=== PATIENT | male | born 1935 | race Caucasian/White ===

== ENCOUNTER 2021-08-29 21:13 | Observation (INO) ==
[2021-08-29] MEDS ORDERED: LIDOCAINE 2% JELLY 5 ML TUBE ONE (22:07)
--- NOTE | 2021-08-29 23:22 | Emergency Department Note ---
Impression & Plan Hematuria ED Provider Note INFORMANT: Patient and ED PROVIDER(S): Olman Espinoza MD CHIEF COMPLAINT: Hematuria PLAN: Disposition: Admitted Condition: Good Outpatient prescription management: none Referral: None MEDICAL DECISION MAKING: Patient was evaluated. He had bleeding from the meatus and urinary retention. A Pham catheter was placed. There was some blood-tinged urine that was resulted however the patient was still having moderate clot of blood from the meatus around the Pham catheter. No clear signs of infection on urinalysis. Patient's CBC revealed no leukocytosis but he had dropped his hemoglobin down 1.5 points since last week. The patient had an INR of 1.9. He may have a urethral injury from the catheterizations and because of his anticoagulation he is continuing to bleed. He is not acutely hemorrhaging at this point but I am concerned about his acute drop of his hemoglobin, anticoagulation, and continued bleeding. Patient needs to be monitored. No other clear indication to reverse his anticoagulation at this point as he has slowed the bleeding. Hopefully the catheter will maintain pressure within the urethra and tamponade source. He may need urologic consultation. Consultation was made with the [facility] Hospitalist service. Patient was evaluated in ER admitted for management. Triage Nursing notes reviewed and agree them. Vital Signs: reviewed and remarkable for no significant abnormalities Differential diagnosis: Complication of catheter, urethral trauma, obstruction, dehydration, urinary tract infection, urinary retention, acute kidney injury, as well as other pathologies. Diagnostics interpreted by me: ECG: none Cardiac Monitoring: none Imaging studies: Deferred HPI: The patient is a 85 year old male who presents to the Emergency Room with complaints of hematuria. This started the day and is worsening. The patient also notes the following associated symptoms, difficulty urinating and pelvic pain The patient has tried to straight cath for relieving factors. Current pain is rated as 3/10. Patient had a Pham catheter this week. It was removed yesterday. He was able to void. The patient had been straight cathed twice today. Patient did have a large blood clot this evening on the second straight cath. The family and seem to be a small tear at the urethral meatus. He is anticoagulated. Pt denies LOC, headache, fevers, chills, diaphoresis, visual changes, neck pain, chest pain, breathing difficulties, nausea, vomiting, back pain, weakness, lymphadenopathy, rash, or other complaints. ROS: See above HPI for pertinent positives & negatives. A total of 10 systems reviewed and were otherwise negative. PAST MEDICAL HISTORY:See Below , diabetes PAST SURGICAL HISTORY:See Below, FAMILY HISTORY:See Below SOCIAL HISTORY:See Below, retired HOME MEDICATIONS:See Below ALLERGIES:See Below VITALS:See Below PHYSICAL EXAMINATION: GENERAL: Awake, alert, well-appearing, in no distress HENT: Normocephalic, atraumatic. Oropharynx unremarkable. EYES: Normal conjunctiva. Sclera non-icteric. NECK: Inspection normal. Non-tender. Supple. No nuchal rigidity. FROM. No masses. RESPIRATORY: Clear to auscultation. No wheezes. No rales. Normal respiratory effort. CARDIAC: Normal rate. Normal rhythm. No murmurs. No rubs. Extremities warm and well perfused. Pulses equal. No JVD. GI: Soft, non-distended. No tenderness to palpation. No rebound or guarding. No masses. : Normal male. His a large blood clot noted in the patient's undergarment. There appears to be a small defect at the urethral meatus, inferior aspect. There is blood coming from the urethral meatus and a slow steady trickle. MUSCULOSKELETAL: Atraumatic. Chest examination reveals no tenderness. The back is symmetrical on inspection without obvious abnormality. There is no CVA tenderness to palpation. No joint edema. LOWER EXTREMITIES: Calves are equal size bilaterally and non-tender. Trace edema. Chronic venous discoloration. NEURO: Normal sensorium. No sensory or motor deficits noted. SKIN: No rash or jaundice noted. 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 --- SLEEP APNEA AND NEEDED TRACH #4 SIZE AND NOT SURE OF TUBE INFORMATION PATIENT WILL BRING IN SPARE FOR HIS COLONSCOPY -- CLEANED EVERY DAY CHANGE EVERY MONTH SLEEP UPRIGHT IN CHAIR AND UNPLUG IT AT NIGHT Social History Smoking Status: Never smoker Second Hand Exposure: No; Hx Alcohol Use: No Hx Substance Use: No Preferred Language: Greek Communication Ability: Effective Visual Impairment: Limited Hearing Ability: Normal 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 Required: No Beliefs That Will Affect Care: None marital status: Current Living Situation: Spouse current occupational status: retired Feels Safe at Home: Yes Assistive Devices: Glasses Allergies Allergies Allergy/AdvReac Type Severity Reaction Status Date / Time No Known Allergies Allergy Unknown Verified 07/20/19 13:49 Home Meds Home Medications Medication Instructions Recorded Confirmed allopurinol 100 mg tablet 100 mg PO QAM 07/14/18 08/30/21 atorvastatin 20 mg tablet 20 mg PO HS 07/14/18 08/30/21 glipizide 10 mg tablet, extended 10 mg PO BID 07/14/18 08/30/21 release 24 hr insulin aspar prot-insulin aspart 26 units SQ QAM ml 07/14/18 08/30/21 100 unit/mL (70-30) subcutaneous pen (Novolog Mix 70-30FlexPen U-100) insulin aspar prot-insulin aspart 36 units SQ QPM ml 07/14/18 08/30/21 100 unit/mL (70-30) subcutaneous pen (Novolog Mix 70-30FlexPen U-100) tamsulosin 0.4 mg capsule 0.4 mg PO HS 07/14/18 08/30/21 cholecalciferol (vitamin D3) 50 50 mcg PO DAILY 08/30/21 08/30/21 mcg (2,000 unit) tablet (Vitamin D3) finasteride 5 mg tablet 5 mg PO DAILY 08/30/21 08/30/21 furosemide 40 mg tablet 40 mg PO 4XWK 08/30/21 08/30/21 furosemide 40 mg tablet 60 mg PO MOWEFR 08/30/21 08/30/21 levothyroxine 137 mcg tablet 137 mcg PO DAILY 08/30/21 08/30/21 losartan 50 mg tablet 50 mg PO BID 08/30/21 08/30/21 metoprolol succinate 25 mg 25 mg PO BID 08/30/21 08/30/21 tablet,extended release 24 hr warfarin 2.5 mg tablet 5 mg PO .6DAYS WEEK 08/30/21 08/30/21 warfarin 2.5 mg tablet 7.5 mg PO .QMON 08/30/21 08/30/21 Previous Rx's Medication Instructions Recorded lidocaine HCl 2 % mucosal jelly 1 applic TOPICAL QID PRN #60 ml 08/25/21 Results & Data (ED) Vital Signs Vital Signs - 24 hr 08/29/21 21:15 08/29/21 21:28 08/29/21 23:03 Temperature 36.8 C Temperature Source Temporal Artery Scan Pulse Rate 89 Pulse Rate [Right Finger] 83 59 L Pulse Rhythm [Right Finger] Regular Pulse Strength [Right Finger] Normal Respiratory Rate 16 18 20 Respiratory Effort / Characteristics Non-Labored Spontaneous Non-Labored Respiratory Depth Normal Normal Blood Pressure 173/93 H Blood Pressure [Right Arm] 177/86 H 158/84 H Blood Pressure Mean 119 Blood Pressure Mean [Right Arm] 116 108 Blood Pressure Position Sitting Pulse Oximetry 93 97 96 Oxygen Delivery Method Room Air Room Air Room Air Sepsis Recent Fever Within 48 Hours No Sepsis New/Unexplained Change in Mental Status N/A Sepsis Action Taken by Nursing No Action Required 08/30/21 01:09 Temperature Temperature Source Pulse Rate Pulse Rate [Right Finger] 78 Pulse Rhythm [Right Finger] Pulse Strength [Right Finger] Respiratory Rate 20 Respiratory Effort / Characteristics Respiratory Depth Blood Pressure Blood Pressure [Right Arm] 146/119 H Blood Pressure Mean Blood Pressure Mean [Right Arm] 128 Blood Pressure Position Pulse Oximetry 93 Oxygen Delivery Method Room Air Sepsis Recent Fever Within 48 Hours Sepsis New/Unexplained Change in Mental Status Sepsis Action Taken by Nursing Laboratory Data Result diagrams: 08/29/21 22:32 08/29/21 22:32 Lab Results 08/29/21 08/29/21 08/29/21 Range/Units 22:32 22:32 22:32 WBC 8.41 (4.8-10.8) K/uL RBC 4.16 L (4.7-6.1) M/uL Hgb 13.5 L (14.0-18.0) g/dL Hct 40.3 L (42-52) % MCV 96.9 (80-100) fL MCH 32.5 (25-34) pg MCHC 33.5 (32-36) g/dL RDW Std Deviation 48.0 H (36.4-46.3) fL RDW Coeff of Jenae 13.5 (11.5-14.5) % Plt Count 210 (130-400) K/uL MPV 10.4 (7.4-10.4) fL Immature Gran % (Auto) 0.4 % Neut % (Auto) 75.3 % Lymph % (Auto) 13.9 % [place] % (Auto) 8.2 % Eos % (Auto) 2.1 % Baso % (Auto) 0.1 % Neut # (Auto) 6.33 (1.4-6.5) K/uL Lymph # (Auto) 1.17 L (1.2-3.4) K/uL [place] # (Auto) 0.69 H (0.11-0.59) K/uL Eos # (Auto) 0.18 (0-0.5) K/uL Baso # (Auto) 0.01 (0-0.2) K/uL Immature Gran # (Auto) 0.03 H (0.00-0.02) K/uL PT 19.5 H (9.0-12.0) Seconds INR 1.9 H (0.9-1.1) Sodium 138 (136-145) mmol/L Potassium 4.1 (3.5-5.1) mmol/L Chloride 107 (98-107) mmol/L Carbon Dioxide 24 (21-32) mmol/L Anion Gap 7 (3-11) BUN 36 H (6-23) mg/dl Creatinine 1.67 H (0.6-1.4) mg/dl Est Cr Clr Drug Dosing 44.9 ml/min Est GFR ( Amer) 42.6 ml/min Est GFR (Non-Af Amer) 36.8 ml/min BUN/Creatinine Ratio 21.6 H (10-20) Glucose 159 H (70-99(Fasting)) mg/dl Calcium 8.3 L (8.5-10.1) mg/dl Total Bilirubin 0.5 (0.2-1.0) mg/dl AST 22 (13-39) U/L ALT 22 (7-52) U/L Alkaline Phosphatase 115 H (34-104) U/L Total Protein 7.0 (6.0-8.3) gm/dl Albumin 3.1 L (3.4-5.0) gm/dl Globulin 3.9 (2.5-4.0) gm/dl Albumin/Globulin Ratio 0.8 L (0.9-2) Urine Color Urine Appearance (Clear) Urine pH (4.5-7.5) Ur Specific [place] (1.000-1.030) Urine Protein (Negative) Urine Glucose (UA) (Negative) Urine Ketones (Negative) Urine Blood (Negative) Urine Nitrite (Negative) Urine Bilirubin (Negative) Urine Urobilinogen (Negative) Ur Leukocyte Esterase (Negative) Urine WBC (Auto) (0-5) /hpf Urine RBC (Auto) (0-4) /hpf U Hyaline Cast (Auto) (0-5) /lpf U Epithel Cells (Auto) (0-5) /lpf Urine Bacteria (Auto) (Negative) SARS-CoV-2, RNA, NAAT (NEGATIVE) 08/29/21 08/30/21 Range/Units 22:32 00:01 WBC (4.8-10.8) K/uL RBC (4.7-6.1) M/uL Hgb (14.0-18.0) g/dL Hct (42-52) % MCV (80-100) fL MCH (25-34) pg MCHC (32-36) g/dL RDW Std Deviation (36.4-46.3) fL RDW Coeff of Jenae (11.5-14.5) % Plt Count (130-400) K/uL MPV (7.4-10.4) fL Immature Gran % (Auto) % Neut % (Auto) % Lymph % (Auto) % [place] % (Auto) % Eos % (Auto) % Baso % (Auto) % Neut # (Auto) (1.4-6.5) K/uL Lymph # (Auto) (1.2-3.4) K/uL [place] # (Auto) (0.11-0.59) K/uL Eos # (Auto) (0-0.5) K/uL Baso # (Auto) (0-0.2) K/uL Immature Gran # (Auto) (0.00-0.02) K/uL PT (9.0-12.0) Seconds INR (0.9-1.1) Sodium (136-145) mmol/L Potassium (3.5-5.1) mmol/L Chloride (98-107) mmol/L Carbon Dioxide (21-32) mmol/L Anion Gap (3-11) BUN (6-23) mg/dl Creatinine (0.6-1.4) mg/dl Est Cr Clr Drug Dosing ml/min Est GFR ( Amer) ml/min Est GFR (Non-Af Amer) ml/min BUN/Creatinine Ratio (10-20) Glucose (70-99(Fasting)) mg/dl Calcium (8.5-10.1) mg/dl Total Bilirubin (0.2-1.0) mg/dl AST (13-39) U/L ALT (7-52) U/L Alkaline Phosphatase (34-104) U/L Total Protein (6.0-8.3) gm/dl Albumin (3.4-5.0) gm/dl Globulin (2.5-4.0) gm/dl Albumin/Globulin Ratio (0.9-2) Urine Color Red Urine Appearance Turbid A (Clear) Urine pH 5.5 (4.5-7.5) Ur Specific [place] 1.011 (1.000-1.030) Urine Protein 3+ H (Negative) Urine Glucose (UA) 1+ H (Negative) Urine Ketones Negative (Negative) Urine Blood 3+ H (Negative) Urine Nitrite Negative (Negative) Urine Bilirubin Negative (Negative) Urine Urobilinogen Negative (Negative) Ur Leukocyte Esterase Negative (Negative) Urine WBC (Auto) 5-10 H (0-5) /hpf Urine RBC (Auto) >30 H (0-4) /hpf U Hyaline Cast (Auto) 1-5 (0-5) /lpf U Epithel Cells (Auto) 5-10 H (0-5) /lpf Urine Bacteria (Auto) Negative (Negative) SARS-CoV-2, RNA, NAAT NEGATIVE (NEGATIVE) Administered Medications Discontinued Medications Lidocaine HCl (Lidocaine 2% Jelly 5 Ml Tube) Confirm Administered Dose 5 ml .ROUTE .Affirm-MED ONE Stop: 08/29/21 22:08 Last Admin: 08/29/21 22:40 Dose: 5 ml Documented by: [id number] Discharge Plan Visit Data Chief Complaint: Urinary Symptoms Stated Complaint: BLOOD CLOT, PELVIC AREA ED Provider: Olman Espinoza Discharge Problem: Hematuria Forms Stand Alone Forms: My [facility] Prescriptions Prescriptions: No Action allopurinol 100 mg tablet 100 mg PO QAM RF: 0 atorvastatin 20 mg tablet 20 mg PO HS RF: 0 tamsulosin 0.4 mg capsule 0.4 mg PO HS RF: 0 Novolog Mix 70-30FlexPen U-100 100 unit/mL (70-30) insulin pen 26 units SQ QAM RF: 0 Novolog Mix 70-30FlexPen U-100 100 unit/mL (70-30) insulin pen 36 units SQ QPM RF: 0 glipizide 10 mg tablet extended release 24hr 10 mg PO BID RF: 0 lidocaine HCl 2 % jelly 1 applic topical QID PRN (Reason: pain) Qty: 60 RF: 0 losartan 50 mg tablet 50 mg PO BID RF: 0 furosemide 40 mg tablet 40 mg PO 4XWK RF: 0 furosemide 40 mg tablet 60 mg PO MOWEFR RF: 0 levothyroxine 137 mcg tablet 137 mcg PO DAILY RF: 0 warfarin 2.5 mg tablet 7.5 mg PO .QMON RF: 0 warfarin 2.5 mg tablet 5 mg PO .6DAYS WEEK RF: 0 metoprolol succinate 25 mg tablet extended release 24 hr 25 mg PO BID RF: 0 finasteride 5 mg tablet 5 mg PO DAILY RF: 0 cholecalciferol (vitamin D3) [Vitamin D3] 50 mcg (2,000 unit) Tablet 50 mcg PO DAILY RF: 0 Referrals Referrals: Tu Crump MD [Primary Care Provider] -
[2021-08-29 23:28] LABS: Basophils # (auto) 0.01 K/uL (0-0.2); Basophils % (auto) 0.1 %; Eosinophils # (auto) 0.18 K/uL (0-0.5); Eosinophils % (auto) 2.1 %; Hematocrit (blood only) 40.3 % (42-52); Hemoglobin 13.5 g/dL (14.0-18.0); Immature Granulocytes # (auto) 0.03 K/uL (0.00-0.02); Immature Granulocytes % (auto) 0.4 %; Lymphocytes # (auto) 1.17 K/uL (1.2-3.4); Lymphocytes % (auto) 13.9 %; Mean Corpuscular Hemoglobin 32.5 pg (25-34); Mean Corpuscular Hgb Conc 33.5 g/dL (32-36); Mean Corpuscular Volume 96.9 fL (80-100); Mean Platelet Volume 10.4 fL (7.4-10.4); Monocytes # (auto) 0.69 K/uL (0.11-0.59); Monocytes % (auto) 8.2 %; Neutrophils # (auto) 6.33 K/uL (1.4-6.5); Neutrophils % (auto) 75.3 %; Platelet Count 210 K/uL (130-400); RDW Coefficient of Variation 13.5 % (11.5-14.5); Red Blood Count 4.16 M/uL (4.7-6.1); White Blood Count 8.41 K/uL (4.8-10.8)
[2021-08-29 23:34] LABS: Bacteria Urine Automated Negative (Negative); Bilirubin Urine Negative (Negative); Blood Urine 3+ (Negative); Glucose Urine UA 1+ (Negative); Ketones Urine Negative (Negative); Leukocyte Esterase Urine Negative (Negative); Nitrite Urine Negative (Negative); Protein Urine 3+ (Negative); RBC Urine Automated >30 /hpf (0-4); Specific Gravity Urine 1.011 (1.000-1.030); Urobilinogen Urine Negative (Negative); pH Urine 5.5 (4.5-7.5)
[2021-08-29 23:36] LABS: INR 1.9 (0.9-1.1); Prothrombin Time 19.5 Seconds (9.0-12.0)
[2021-08-29 23:44] LABS: Appearance Urine Turbid (Clear); Color Urine Red
[2021-08-30 00:04] LABS: Albumin Globulin Ratio 0.8 (0.9-2); Albumin Level 3.1 gm/dl (3.4-5.0); BUN Creatinine Ratio 21.6 (10-20); Bilirubin,Total 0.5 mg/dl (0.2-1.0); Calcium 8.3 mg/dl (8.5-10.1); Creatinine Clr Calc Pharmacy 44.9 ml/min; Est GFR (African American) 42.6 ml/min; Est GFR (Non-African American) 36.8 ml/min; Globulin 3.9 gm/dl (2.5-4.0); Potassium 4.1 mmol/L (3.5-5.1)
[2021-08-30] MEDS ORDERED: ACETAMINOPHEN 325 MG TAB PO PRN (03:06)
[2021-08-30] MEDS ORDERED: POLYETHYLENE (MIRALAX) 17 GM PACK PO PRN (03:06)
[2021-08-30] MEDS ORDERED: LIDOCAINE 2% JELLY 5 ML TUBE EXT PRN (03:06)
--- NOTE | 2021-08-30 03:54 | History and Physical Report ---
DATE OF ADMISSION: 08/30/2021. CHIEF COMPLAINT: Hematuria. HISTORY OF PRESENT ILLNESS: This is an 85-year-old male with past medical history significant for diabetes, diabetic peripheral neuropathy, chronic kidney disease stage III, hyperlipidemia, diabetic retinopathy, hypothyroidism, congenital atresia and stenosis of aorta, nonrheumatic aortic valve stenosis, hypertension, status post TAVR, persistent atrial fibrillation, morbid obesity, BPH, history of microhematuria, CHRISTI intolerance, history of subacute bacterial endocarditis prophylaxis candidate, tracheostomy status, but the patient is not using it, history of colonic polyps, history of cerebellar stroke, history of kidney stones. The patient lives at home with his , presents with hematuria. The patient says he was placed on Pham catheter for 4 days because of urinary retention and the Pham catheter was taken out on last Saturday and since then again, he was not able to pee and yesterday he was straight cathed twice, first it was done by his , second was done by his granddaughter, who is a nurse. When they did, he was passing a lot of clots and bleeding, that is the reason he came to the ER. In the ER, he was placed on Pham. He had some blood tinge in the catheter, but there is some bleeding around the catheter, probably urethral meatus bleeding. His hemoglobin is stable at 13.5. He is on Coumadin, INR is 1.9. Creatinine is 1.6 which is around baseline.Will be admitted for observation. Currently denies any belly pain. No nausea, no vomiting, no diarrhea or constipation. No chest pain, no shortness of breath, no cough, no headache, no blurred visions, no earache, no runny nose, no sore throat. Appetite is okay, swallows okay. He says because of back pain, he generally sleeps in the chair. ALLERGIES: CHRISTI INHIBITORS, SIMVASTATIN. PAST MEDICAL HISTORY: As mentioned above. PAST SURGICAL HISTORY: Left knee arthroplasty, colonoscopy, colonoscopy with biopsy, status post tracheostomy, radical orchiectomy, appendectomy, bilateral cataract surgeries, cholecystectomy, TAVR, suture repair of entropion, total hip arthroplasty. MEDICATIONS: The patient is on allopurinol 100 mg p.o. a.m., atorvastatin 20 mg p.o. at bedtime, vitamin D 50 mcg p.o. daily, finasteride 5 mg p.o. daily, Lasix 40 mg p.o. 4 times a week and 60 mg 3 times a week, glipizide 10 mg p.o. b.i.d., insulin 70/30 to take2 6 units in the a.m. and 36 units in the p.m., levothyroxine 137 mcg p.o. daily, lidocaine patch topical q.i.d. p.r.n., losartan 50 mg p.o. b.i.d., metoprolol succinate 25 mg p.o. b.i.d., Flomax 0.4 mg p.o. at bedtime, Coumadin 7.5 mg on Mondays and 5 mg 6 times a week. FAMILY HISTORY: Significant for sister has cancer, brother has diabetes. SOCIAL HISTORY: , no smoking, no alcohol, no drug use. REVIEW OF SYSTEMS: As per HPI. Rest of review of systems is negative. PHYSICAL EXAMINATION: GENERAL: The patient is morbidly obese, not in acute distress. VITAL SIGNS: Temperature 36.8, pulse 78, respiratory rate 20, blood pressure 146/119, oxygen 93% on room air. HEENT: Pupils equal, round and reactive to light. Oral mucosa moist. NECK: No JVD, no neck masses. CARDIOVASCULAR: S1 and S2 heard. Regular rate and rhythm. No murmur, no gallop. RESPIRATORY SYSTEM: Normal AP diameter. No accessory muscle use. No wheezing, no crackles. ABDOMEN: Soft. Bowel sounds are present, nontender, no distention. CENTRAL NERVOUS SYSTEM: Cranial nerves II-XII grossly intact, nonfocal. EXTREMITIES: Mild edema, no erythema seen. LABORATORY DATA: WBC 8.4, hemoglobin 13.5, hematocrit 40.3, platelets 210. PT 19.5, INR 1.9. Sodium 138, potassium 4.1, chloride 107, bicarb 24, BUN 36, creatinine 1.67, serum glucose 159, calcium 8.3, total bilirubin 0.5, AST 22, ALT 22, alkaline phosphatase 115. Urinalysis, +3 protein, +1 glucose, +3 blood. SARS-CoV-2 rapid test negative. ASSESSMENT AND PLAN: This is an 85-year-old male who presents with hematuria and urinary retention. 1. Hematuria and urinary retention: The patient has had a Pham catheter for 4 days and it was taken out on last Saturday. Then had to straight catheterize twice and had hematuria. On Coumadin, INR is 1.9, status post Pham catheter in the ER. Some blood-tinged urine and some bleeding around the catheter. Will observe in the hospital. Consult urology in the a.m. Keep n.p.o. until seen by urology. 2. History of type 2 diabetes: Currently n.p.o. Holding his glipizide and holding his insulin 70/30. Placed on insulin sliding scale. Follow the blood sugars. 3. History of hypothyroidism: Continue Synthroid. 4. History of hypertension: Continue losartan and metoprolol. Will monitor his blood pressure. 5. History of chronic diastolic congestive heart failure: Continue his home Lasix and metoprolol. 6. Benign prostatic hypertrophy: On Flomax and Proscar. 7. History of atrial fibrillation: Rate controlled with metoprolol. Holding Coumadin. Follow the INR. Status post TAVR. 8. Hyperlipidemia: On statin. 9. Deep venous thrombosis prophylaxis: Sequential compression devices for now. DISPOSITION: Observation in medical floor. PT/OT prior to discharge. Social service to help with discharge planning. Level 1 full code. Job ID: [id number] [facility]
[2021-08-30] MEDS ORDERED: Nursing to Pharmacy Communication SCH ×2 (05:15→15:30)
[2021-08-30] MEDS: LEVOTHYROXINE SODIUM 137 MCG TABLET PO SCH (06:33)
[2021-08-30] MEDS: INSULIN ASPART PER UNIT SC SCH ×4 (06:33→21:07)
[2021-08-30] MEDS ORDERED: INSULIN ASPART PER UNIT SC SCH (07:30)
[2021-08-30 07:52] LABS: Basophils # (auto) 0.02 K/uL (0-0.2); Basophils % (auto) 0.3 %; Eosinophils # (auto) 0.29 K/uL (0-0.5); Eosinophils % (auto) 3.8 %; Hematocrit (blood only) 38.2 % (42-52); Hemoglobin 12.9 g/dL (14.0-18.0); Immature Granulocytes # (auto) 0.02 K/uL (0.00-0.02); Immature Granulocytes % (auto) 0.3 %; Lymphocytes # (auto) 1.46 K/uL (1.2-3.4); Lymphocytes % (auto) 18.9 %; Mean Corpuscular Hemoglobin 33.1 pg (25-34); Mean Corpuscular Hgb Conc 33.8 g/dL (32-36); Mean Corpuscular Volume 97.9 fL (80-100); Mean Platelet Volume 10.3 fL (7.4-10.4); Monocytes # (auto) 0.85 K/uL (0.11-0.59); Neutrophils # (auto) 5.07 K/uL (1.4-6.5); Neutrophils % (auto) 65.7 %; Platelet Count 202 K/uL (130-400); RDW Coefficient of Variation 13.3 % (11.5-14.5); RDW Standard Deviation 47.8 fL (36.4-46.3); White Blood Count 7.71 K/uL (4.8-10.8)
[2021-08-30 08:04] LABS: INR 1.9 (0.9-1.1); Prothrombin Time 19.4 Seconds (9.0-12.0)
[2021-08-30 08:11] LABS: BUN Creatinine Ratio 20.6 (10-20); Calcium 8.1 mg/dl (8.5-10.1); Creatinine Clr Calc Pharmacy 46.5 ml/min; Est GFR (African American) 44.9 ml/min; Est GFR (Non-African American) 38.7 ml/min; Magnesium 1.9 mg/dl (1.7-2.4); Potassium 3.6 mmol/L (3.5-5.1)
[2021-08-30 08:37] LABS: Estimated Average Glucose 169 mg/dl; Hemoglobin A1C 7.5 % (4.5-5.6)
[2021-08-30] MEDS: LOSARTAN POTASSIUM 50 MG TAB PO SCH ×2 (08:38→21:03)
[2021-08-30] MEDS: allopurinoL 100 MG TAB PO SCH (08:38)
[2021-08-30] MEDS: FUROSEMIDE 20 MG TAB PO SCH (08:38)
[2021-08-30] MEDS: FINASTERIDE 5 MG TAB PO SCH (08:38)
[2021-08-30] MEDS: CHOLECALCIFEROL 1,000 UNITS 25 MCG TAB PO SCH (08:38)
[2021-08-30] MEDS: METOPROLOL SUCC 25MG EXT REL TAB PO SCH ×2 (08:38→21:02)
--- NOTE | 2021-08-30 12:13 | Urology Consultation ---
Date of Consultation August 30, 2021 Assessment & Plan (1) Acute urinary retention: (2) Hematuria: 85-year-old male with multiple medical issues on chronic anticoagulation admitted with acute urinary retention and gross hematuria. -Gross hematuria likely due to the recent multiple catheterizations in the setting of chronic anticoagulation. -He is afebrile, hemodynamically stable. -Labs reviewed- No leukocytosis, hemoglobin 12.9, creatinine 1.60 -Urinalysis not suggestive of infection. -No acute intervention warranted at this time. -Urine appears to be clearing some, Pham catheter currently draining light pink urine without clot -Continue to monitor. -Maintain Pham catheter, ok to gently hand irrigate as needed for clots, retention, suprapubic pain. -Will plan to make NPO at midnight and reassess in AM. -Continue supportive care, flomax, and finasteride. -Anticoagulation on hold per primary team. -Urology will follow. History of Present Illness Reason for Consultation: Urinary retention, hematuria Attending Physician: Pepper Helton MD History of Present Illness 85-year-old male with a past medical history significant for diabetes, diabetic peripheral neuropathy, chronic kidney disease stage III, hyperlipidemia, diabetic retinopathy, hypothyroidism, congenital atresia and stenosis of aorta, nonrheumatic aortic valve stenosis, hypertension, status post TAVR, persistent atrial fibrillation, morbid obesity, BPH, history of microhematuria, CHRISTI intolerance, history of subacute bacterial endocarditis prophylaxis candidate, tracheostomy status, but the patient is not using it, history of colonic polyps, history of cerebellar stroke, history of kidney stones who presented to the ED with urinary retention and hematuria. Patient follows with Dr. Rascon with [facility] urology. Patient had a cystoscopy at the end of July. About a week later he developed urinary retention and had a Pham catheter placed here in the emergency room. He had the catheter for approximately 1 week and had this removed on Saturday at his primary urologist office. Since then he has had difficulty with urination and was straight cathed x2 at home by /daughter. After being straight catheterized, he noted passage of clots and bleeding and therefore presented to the ED for evaluation. On arrival in the ED, a Pham catheter was placed. The catheter was draining with hematuria and bleeding was also noted around the meatus. He was admitted for further observation. Patient examined at bedside this morning. Awake, resting in bed on arrival. No acute distress. Patient denies any significant pain at present. Pham catheter is intact and draining light pink urine without clot. No fevers or chills. Denies nausea or vomiting. Patient states he follows with Dr. Rascon with [facility] urology. He was recently seen in the office and started on finasteride as he was told he had an enlarged prostate. No additional complaints or concerns at time of exam. Allergies Allergy/AdvReac Type Severity Reaction Status Date / Time CHRISTI Inhibitors AdvReac Mild Cough Verified 08/30/21 01:25 simvastatin AdvReac Muscle Pain Verified 08/30/21 01:25 Home Medications Medication Instructions Recorded Confirmed Type allopurinol 100 mg tablet 100 mg PO QAM 07/14/18 08/30/21 History atorvastatin 20 mg tablet 20 mg PO HS 07/14/18 08/30/21 History glipizide 10 mg tablet, extended 10 mg PO BID 07/14/18 08/30/21 History release 24 hr insulin aspar prot-insulin aspart 26 units SQ QAM ml 07/14/18 08/30/21 History 100 unit/mL (70-30) subcutaneous pen (Novolog Mix 70-30FlexPen U-100) insulin aspar prot-insulin aspart 36 units SQ QPM ml 07/14/18 08/30/21 History 100 unit/mL (70-30) subcutaneous pen (Novolog Mix 70-30FlexPen U-100) tamsulosin 0.4 mg capsule 0.4 mg PO HS 07/14/18 08/30/21 History lidocaine HCl 2 % mucosal jelly 1 applic TOPICAL QID PRN #60 ml 08/25/21 08/30/21 Rx cholecalciferol (vitamin D3) 50 50 mcg PO DAILY 08/30/21 08/30/21 History mcg (2,000 unit) tablet (Vitamin D3) finasteride 5 mg tablet 5 mg PO DAILY 08/30/21 08/30/21 History furosemide 40 mg tablet 40 mg PO 4XWK 08/30/21 08/30/21 History furosemide 40 mg tablet 60 mg PO MOWEFR 08/30/21 08/30/21 History levothyroxine 137 mcg tablet 137 mcg PO DAILY 08/30/21 08/30/21 History losartan 50 mg tablet 50 mg PO BID 08/30/21 08/30/21 History metoprolol succinate 25 mg 25 mg PO BID 08/30/21 08/30/21 History tablet,extended release 24 hr warfarin 2.5 mg tablet 5 mg PO .6DAYS WEEK 08/30/21 08/30/21 History warfarin 2.5 mg tablet 7.5 mg PO .QMON 08/30/21 08/30/21 History Patient History Medical History (Updated 08/29/21 @ 23:22 by Olman Espinoza MD) Chronic kidney disease, stage III (moderate) GERD (gastroesophageal reflux disease) Gout H/O nonmelanoma skin cancer Hyperlipidemia Hypertension Hypothyroidism (acquired) Kidney stones 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 Type 2 diabetes mellitus without complications Surgical History Hx of colonoscopy Hx of tonsillectomy S/P aortic valve replacement DUE TO STENOSIS S/P appendectomy S/P cholecystectomy S/P hip replacement LEFT S/P knee replacement LEFT 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 --- SLEEP APNEA AND NEEDED TRACH #4 SIZE AND NOT SURE OF TUBE INFORMATION PATIENT WILL BRING IN SPARE FOR HIS COLONSCOPY -- CLEANED EVERY DAY CHANGE EVERY MONTH SLEEP UPRIGHT IN CHAIR AND UNPLUG IT AT NIGHT Social History Smoking Status: Former smoker Smoking End Date: 60 yrs ago; Second Hand Exposure: No; Hx Alcohol Use: No Hx Substance Use: No Preferred Language: Citizen Of [place] Communication Ability: Effective Visual Impairment: Limited Hearing Ability: Normal 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: No Beliefs That Will Affect Care: None marital status: Current Living Situation: Spouse current occupational status: retired Other Information That Helps Us Care for You: No Feels Safe at Home: Yes Safety Concerns: Feels Safe At This Time Assistive Devices: Cane Review of Systems Review of Systems: All systems reviewed & are unremarkable except as noted in HPI & below Physical Exam Constitutional: well developed and well nourished; no acute distress and not ill appearing Neck: normal visual inspection Respiratory: normal respiratory effort and able to speak in complete sentences; no labored breathing and no audible wheezes Gastrointestinal (Abdomen): Inspection/Auscultation: abdomen normal to inspection; abdomen not distended Percussion/Palpation: abdomen soft; abdomen nontender and no guarding Musculoskeletal: Head/Neck/Chest: normocephalic Skin: No visible rashes or lesions to exposed skin areas Neurologic: moves all extremities and awake Psychiatric: Orientation: alert, oriented x 3 and cooperative Genitourinary: Pham catheter intact, draining light pink urine without clot Results & Data ([facility]) Vital Signs (Past 12 Hours) Vital Signs Temp Pulse Resp BP BP Pulse Ox 08/30/21 07:46 36.8 C 62 20 143/77 H 94 08/30/21 02:50 36.4 C L 72 16 176/83 H 98 08/30/21 02:20 70 20 156/93 H 96 08/30/21 01:09 78 20 146/119 H 93 PG Care Time/CCT Total # of Minutes Spent Total Time Spent with Patient: Total time spent is greater than 50% in coordination of care (as documented) at patient's floor/unit and/or counseling patient: Coding Level of Care Code 93654 Initial Inpt Care Lvl 2 Diagnoses Acute urinary retention R33.8 Hematuria R31.9
--- NOTE | 2021-08-30 15:22 | Hospitalist Progress Note ---
Date of Service August 30, 2021 Assessment & Plan (1) Acute urinary retention: Plan: 85-year-old male with past medical history significant for diabetes, diabetic peripheral neuropathy, chronic kidney disease stage III, hyperlipidemia, diabetic retinopathy, hypothyroidism, congenital atresia and stenosis of aorta, nonrheumatic aortic valve stenosis, hypertension, status post TAVR, persistent atrial fibrillation, morbid obesity, BPH, history of microhematuria, CHRISTI int olerance, history of subacute bacterial endocarditis prophylaxis candidate, tracheostomy status, but the patient is not using it, history of colonic polyps, history of cerebellar stroke, history of kidney stones presented 08/30 with what appears to be traumatic hematuria after failed straight cath x2 at home. He is being managed for the followin. Hematuria and urinary retention: The patient has had a Pham catheter for 4 days and it was taken out on last Saturday [employer]. Then had to straight catheterize twice and had hematuria. On Coumadin, INR is 1.9, status post Pham catheter in the ER. Per patient, hematuria is getting better. Urology evaluated, no intervention today, will reassess tomorrow. N.p.o. midnight. Can resume diet now. Patient on Coumadin for A. fib, resume when cleared per urology. Patient will need follow-up with Coumadin clinic as an outpatient upon discharge. 2. History of type 2 diabetes: Holding his glipizide and holding his insulin 70/30. Placed on insulin sliding scale. Follow the blood sugars. 3. History of hypothyroidism: Continue Synthroid. 4. History of hypertension: Continue losartan and metoprolol. Will monitor his blood pressure. 5. History of chronic diastolic congestive heart failure: Continue his home Lasix and metoprolol. 6. Benign prostatic hypertrophy: On Flomax and Proscar. 7. History of atrial fibrillation: Rate controlled with metoprolol. Holding Coumadin. Follow the INR. Status post TAVR. 8. Hyperlipidemia: On statin. 9. Deep venous thrombosis prophylaxis: Sequential compression devices for now. #. Disposition: Likely in the next 1 to 2 days, CM to assist with DC planning. Admission and Anticipated Discharge Date Admission Date: August 30, 2021 Subjective 85-year-old gentleman was seen and examined at bedside as a follow-up of hematuria and urinary retention. Patient was lying in bed, on room air, NAD, no new acute events overnight. Per patient, his hematuria is clearing up. Patient n.p.o. at bedside exam for possible urologic intervention, per urology no intervention today, diet resumed, n.p.o. from midnight for possible urology intervention tomorrow/reassessment. Patient denies any headache/dizziness/chest pain/palpitations/belly pain/acute changes in bowel habits. Physical Exam Physical Exam: GENERAL: Alert and oriented x3. NAD, on RA. Morbidly obese. HEENT: No pallor, no icterus. Pupils equal, round and reactive to light. Oral mucosa moist. NECK: No JVD, no neck masses. HEART: S1 and S2 heard. Regular rate and rhythm. No murmur, no gallop. RESPIRATORY SYSTEM: Normal AP diameter. No accessory muscle use. No wheezing, no crackles. ABDOMEN: Soft, bowel sounds present, nontender, no distention. CENTRAL NERVOUS SYSTEM: No facial droop. Speech is clear. Obeys simple commands. Moves extremities. EXTREMITIES: No edema, no erythema seen. BLE chronic skin changes. UC w/ gross hematuria in bag. Results & Data Results & Data ([facility]) Vital Signs (Past 12 Hours) Vital Signs Temp Pulse Resp BP Pulse Ox 08/30/21 07:46 36.8 C 62 20 143/77 H 94
[2021-08-30] MEDS: ATORVASTATIN 20 MG TAB PO SCH (21:02)
[2021-08-30] MEDS: TAMSULOSIN HCL 0.4 MG CAP PO SCH (21:02)
[2021-08-31] MEDS: INSULIN ASPART PER UNIT SC SCH ×5 (00:22→22:08)
[2021-08-31] MEDS: LEVOTHYROXINE SODIUM 137 MCG TABLET PO SCH (06:13)
[2021-08-31] MEDS ORDERED: FUROSEMIDE 40 MG TAB PO SCH (09:00)
[2021-08-31 09:07] LABS: Hematocrit (blood only) 38.1 % (42-52); Hemoglobin 12.7 g/dL (14.0-18.0)
[2021-08-31 09:28] LABS: BUN Creatinine Ratio 20.8 (10-20); Calcium 8.2 mg/dl (8.5-10.1); Est GFR (African American) 40.8 ml/min; Est GFR (Non-African American) 35.2 ml/min; Magnesium 1.9 mg/dl (1.7-2.4); Potassium 3.6 mmol/L (3.5-5.1)
[2021-08-31] MEDS: LOSARTAN POTASSIUM 50 MG TAB PO SCH ×2 (10:59→20:14)
[2021-08-31] MEDS: FINASTERIDE 5 MG TAB PO SCH (10:59)
[2021-08-31] MEDS: CHOLECALCIFEROL 1,000 UNITS 25 MCG TAB PO SCH (11:00)
[2021-08-31] MEDS: METOPROLOL SUCC 25MG EXT REL TAB PO SCH ×2 (11:00→20:14)
[2021-08-31] MEDS: allopurinoL 100 MG TAB PO SCH (11:00)
--- NOTE | 2021-08-31 12:24 | Urology Progress Note ---
Date of Service August 31, 2021 Assessment & Plan (1) Acute urinary retention: (2) Hematuria: Plan: 85-year-old male with multiple medical issues on chronic anticoagulation admitted with acute urinary retention and gross hematuria. -Plan of care reviewed with Dr. Bloom. -Urine appears to be clearing. -Pham catheter currently draining pink tinged urine without clot -Will continue to monitor. -No acute intervention warranted at this time. -He is afebrile, hemodynamically stable. -Labs reviewed- No leukocytosis, hemoglobin 12.7, creatinine 1.73 -Urinalysis not suggestive of infection. -Maintain Pham catheter, ok to gently hand irrigate as needed for clots, retention, suprapubic pain. -Continue supportive care, flomax, and finasteride. -Given his urine continues to clear appropriately, he can likely resume his anticoagulation in the next 24-48 hours from a standpoint. -Small tear noted at urethral meatus on exam, can apply Neosporin ointment to affected area. -Urology will follow. Admission and Anticipated Discharge Date Admission Date: August 30, 2021 Subjective Pt examined at bedside this AM. Awake, resting in bed on arrival. No acute distress. Pham catheter intact, draining pink tinged urine without clot. Denies any pain or discomfort. No fevers or chills. Denies nausea/vomiting. Small tear at the urethral meatus with small amount of dried blood noted. Review of Systems Constitutional: as per Subjective / HPI Gastrointestinal: as per Subjective / HPI Genitourinary: + as per Subjective / HPI Physical Exam Constitutional: well developed and well nourished; no acute distress and not ill appearing Neck: normal visual inspection Respiratory: normal respiratory effort and able to speak in complete sentences; no labored breathing and no audible wheezes Gastrointestinal (Abdomen): Inspection/Auscultation: abdomen normal to inspection; abdomen not distended Percussion/Palpation: abdomen soft; abdomen nontender and no guarding Musculoskeletal: Head/Neck/Chest: normocephalic Neurologic: moves all extremities and awake Psychiatric: Orientation: alert, oriented x 3 and cooperative Genitourinary: Pham catheter intact, draining pink tinged urine. Small tear at urethral meatus. Results & Data ([facility]) Vital Signs (Past 12 Hours) Vital Signs Temp Pulse Resp BP Pulse Ox 08/31/21 07:56 36.6 C 82 20 162/74 H 96 PG Care Time/CCT Total # of Minutes Spent Total Time Spent with Patient: Total time spent is greater than 50% in coordination of care (as documented) at patient's floor/unit and/or counseling patient: Coding Level of Care Code 45755 Subseq Hosp Care Lvl 2 Diagnoses Acute urinary retention R33.8 Hematuria R31.9
[2021-08-31] MEDS ORDERED: Nursing to Pharmacy Communication SCH (13:45)
[2021-08-31] MEDS ORDERED: GLUCOSE 40% GEL 15 GM TUBE PO PRN (14:45)
[2021-08-31] MEDS ORDERED: GLUCAGON FOR INJ 1 MG VIAL IM PRN (14:45)
[2021-08-31] MEDS ORDERED: CARBOHYDRATES FOR HYPOGLYCEMIA PO PRN (14:45)
[2021-08-31] MEDS ORDERED: DEXTROSE 50% 50 ML SYRINGE IV PRN (14:45)
[2021-08-31] MEDS ORDERED: GLUCOSE 10 TABS/TUBE PO PRN (14:45)
[2021-08-31] MEDS: NEOMYCIN/POLYMYX/BACITR OINT 15 GM TUBE EXT SCH (17:15)
--- NOTE | 2021-08-31 18:51 | Hospitalist Progress Note ---
Date of Service August 31, 2021 Assessment & Plan (1) Acute urinary retention: Plan: 85-year-old male with past medical history significant for diabetes, diabetic peripheral neuropathy, chronic kidney disease stage III, hyperlipidemia, diabetic retinopathy, hypothyroidism, congenital atresia and stenosis of aorta, nonrheumatic aortic valve stenosis, hypertension, status post TAVR, persistent atrial fibrillation, morbid obesity, BPH, history of microhematuria, CHRISTI int olerance, history of subacute bacterial endocarditis prophylaxis candidate, tracheostomy status, but the patient is not using it, history of colonic polyps, history of cerebellar stroke, history of kidney stones presented 08/30 with what appears to be traumatic hematuria after failed straight cath x2 at home. He is being managed for the followin. Hematuria and urinary retention: The patient has had a Pham catheter for 4 days and it was taken out on last Saturday [employer] ASSOCI[employer]. Then had to straight catheterize twice and had hematuria before coming. Status post Pham catheter in the ER.Coumadin on hold. Hematuria is getting better. Urology evaluated, no intervention. Patient on Coumadin for A. fib, resume when cleared per urology - in next 24-48 hrs. Patient will need follow-up with Coumadin clinic as an outpatient upon discharge. 2. History of type 2 diabetes: Holding his glipizide and holding his insulin 70/30. Placed on insulin sliding scale. Follow the blood sugars. 3. History of hypothyroidism: Continue Synthroid. 4. History of hypertension: Continue losartan and metoprolol. Will monitor his blood pressure. 5. History of chronic diastolic congestive heart failure: Continue his home Lasix and metoprolol. 6. Benign prostatic hypertrophy: On Flomax and Proscar. 7. History of atrial fibrillation: Rate controlled with metoprolol. Holding Coumadin. Follow the INR. Status post TAVR. 8. Hyperlipidemia: On statin. 9. Deep venous thrombosis prophylaxis: Sequential compression devices for now. #. Disposition: Likely in the next 1 to 2 days, CM to assist with DC planning. Admission and Anticipated Discharge Date Admission Date: August 30, 2021 Subjective 85-year-old gentleman was seen and examined at bedside as a follow-up of hematuria and urinary retention. Patient was lying in bed, on room air, NAD, no new acute events overnight.Hematuria is clearing up. Patient n.p.o. at bedside exam for possible urologic intervention, per urology no intervention this admission, diet resumed. Patient denies any headache/dizziness/chest pain/palpitations/belly pain/acute changes in bowel habits. Physical Exam Physical Exam: GENERAL: Alert and oriented x3. NAD, on RA. Morbidly obese. HEENT: No pallor, no icterus. Pupils equal, round and reactive to light. Oral mucosa moist. NECK: No JVD, no neck masses. HEART: S1 and S2 heard. Regular rate and rhythm. No murmur, no gallop. RESPIRATORY SYSTEM: Normal AP diameter. No accessory muscle use. No wheezing, no crackles. ABDOMEN: Soft, bowel sounds present, nontender, no distention. CENTRAL NERVOUS SYSTEM: No facial droop. Speech is clear. Obeys simple commands. Moves extremities. EXTREMITIES: No edema, no erythema seen. BLE chronic skin changes. UC w/ hematuria in bag -- clearing up Results & Data Results & Data ([facility]) Vital Signs (Past 12 Hours) Vital Signs Temp Pulse Resp BP BP Pulse Ox 08/31/21 15:42 36.6 C 78 18 155/76 H 100 08/31/21 10:59 65 139/74 08/31/21 07:56 36.6 C 82 20 162/74 H 96
[2021-08-31] MEDS: ATORVASTATIN 20 MG TAB PO SCH (20:14)
[2021-08-31] MEDS: TAMSULOSIN HCL 0.4 MG CAP PO SCH (20:20)
[2021-09-01] MEDS: LEVOTHYROXINE SODIUM 137 MCG TABLET PO SCH (05:47)
[2021-09-01] MEDS: NEOMYCIN/POLYMYX/BACITR OINT 15 GM TUBE EXT SCH (08:08)
[2021-09-01] MEDS: FUROSEMIDE 20 MG TAB PO SCH (08:09)
[2021-09-01] MEDS: allopurinoL 100 MG TAB PO SCH (08:09)
[2021-09-01] MEDS: CHOLECALCIFEROL 1,000 UNITS 25 MCG TAB PO SCH (08:10)
[2021-09-01] MEDS: FINASTERIDE 5 MG TAB PO SCH (08:10)
[2021-09-01] MEDS: METOPROLOL SUCC 25MG EXT REL TAB PO SCH (08:10)
[2021-09-01] MEDS: LOSARTAN POTASSIUM 50 MG TAB PO SCH (08:10)
[2021-09-01] MEDS: INSULIN ASPART PER UNIT SC SCH ×2 (08:15→13:46)
--- NOTE | 2021-09-01 09:25 | Urology Progress Note ---
Date of Service September 01, 2021 Assessment & Plan (1) Acute urinary retention: (2) Hematuria: Plan: 85-year-old male with multiple medical issues on chronic anticoagulation admitted with acute urinary retention and gross hematuria. -Plan of care reviewed with Dr. Diaz. -Urine has cleared. -Pham catheter currently draining clear yellow urine. -No acute intervention warranted at this time. -He is afebrile, hemodynamically stable. -Labs reviewed- White count normal, Creatinine 2.03. -Urinalysis not suggestive of infection. -Maintain Pham catheter, ok to gently hand irrigate as needed for clots, retention, suprapubic pain. -Continue supportive care, flomax, and finasteride. -OK to resume anticoagulation today from standpoint. -Small tear noted at urethral meatus on exam, can apply Neosporin ointment to affected area. -Patient follows with [facility] and plans to follow-up with his primary urologist following discharge. Discussed recommendation to maintain Pham catheter until follow-up with urology, patient agreeable to plan -Urology will sign off. Please contact us with any further questions, concerns, changes in patient's status. Admission and Anticipated Discharge Date Admission Date: August 30, 2021 Supervising Physician Co-Signing Physician Notes Discussed patient with MARCELINA. Agree with plan. Subjective Pt examined at bedside this AM. Awake, sitting in bedside chair on arrival. No acute distress. Pham catheter intact, draining clear yellow urine. Denies any pain or discomfort. No fevers or chills. Denies nausea/vomiting. Small tear at the urethral meatus with small amount of dried blood noted. Review of Systems Constitutional: as per Subjective / HPI Gastrointestinal: as per Subjective / HPI Genitourinary: + as per Subjective / HPI Physical Exam Constitutional: well developed and well nourished; no acute distress and not ill appearing Neck: normal visual inspection Respiratory: normal respiratory effort and able to speak in complete sente nces; no labored breathing and no audible wheezes Gastrointestinal (Abdomen): Inspection/Auscultation: abdomen normal to inspection; abdomen not distended Percussion/Palpation: abdomen soft; abdomen nontender and no guarding Musculoskeletal: Head/Neck/Chest: normocephalic Neurologic: moves all extremities and awake Psychiatric: Orientation: alert, oriented x 3 and cooperative Genitourinary: Pham catheter intact Results & Data ([facility]) Vital Signs (Past 12 Hours) Vital Signs Temp Pulse Resp BP Pulse Ox 09/01/21 07:18 36.5 C 75 16 138/74 94 08/31/21 22:49 36.4 C L 65 18 149/78 H 95 PG Care Time/CCT Total # of Minutes Spent Total Time Spent with Patient: Total time spent is greater than 50% in coordination of care (as documented) at patient's floor/unit and/or counseling patient: Coding Level of Care Code 87201 Subseq Hosp Care Lvl 2 Diagnoses Acute urinary retention R33.8 Hematuria R31.9
[2021-09-01 10:09] LABS: Hematocrit (blood only) 37.7 % (42-52); Hemoglobin 12.8 g/dL (14.0-18.0); INR 1.5 (0.9-1.1); Mean Corpuscular Hemoglobin 33.2 pg (25-34); Mean Corpuscular Volume 97.9 fL (80-100); Mean Platelet Volume 10.1 fL (7.4-10.4); Platelet Count 203 K/uL (130-400); Prothrombin Time 15.6 Seconds (9.0-12.0); RDW Coefficient of Variation 13.5 % (11.5-14.5); RDW Standard Deviation 48.3 fL (36.4-46.3); Red Blood Count 3.85 M/uL (4.7-6.1); White Blood Count 8.03 K/uL (4.8-10.8)
[2021-09-01 10:20] LABS: BUN Creatinine Ratio 20.7 (10-20); Calcium 8.4 mg/dl (8.5-10.1); Creatinine Clr Calc Pharmacy 36.7 ml/min; Est GFR (African American) 33.6 ml/min; Potassium 3.7 mmol/L (3.5-5.1)
--- NOTE | 2021-09-01 14:01 | Discharge Summary ---
Date of Service September 01, 2021 Admission HPI Per Admitting Provider DATE OF ADMISSION: 08/30/2021. CHIEF COMPLAINT: Hematuria. HISTORY OF PRESENT ILLNESS: This is an 85-year-old male with past medical history significant for diabetes, diabetic peripheral neuropathy, chronic kidney disease stage III, hyperlipidemia, diabetic retinopathy, hypothyroidism, congenital atresia and stenosis of aorta, nonrheumatic aortic valve stenosis, hypertension, status post TAVR, persistent atrial fibrillation, morbid obesity, BPH, history of microhematuria, CHRISTI intolerance, history of subacute bacterial endocarditis prophylaxis candidate, tracheostomy status, but the patient is not using it, history of colonic polyps, history of cerebellar stroke, history of kidney stones. The patient lives at home with his , presents with hematuria. The patient says he was placed on Pham catheter for 4 days because of urinary retention and the Pham catheter was taken out on last Saturday and since then again, he was not able to pee and yesterday he was straight cathed twice, first it was done by his , second was done by his granddaughter, who is a nurse. When they did, he was passing a lot of clots and bleeding, that is the reason he came to the ER. In the ER, he was placed on Pham. He had some blood tinge in the catheter, but there is some bleeding around the catheter, probably urethral meatus bleeding. His hemoglobin is stable at 13.5. He is on Coumadin, INR is 1.9. Creatinine is 1.6 which is around baseline.Will be admitted for observation. Currently denies any belly pain. No nausea, no vomiting, no diarrhea or constipation. No chest pain, no shortness of breath, no cough, no headache, no blurred visions, no earache, no runny nose, no sore throat. Appetite is okay, swallows okay. He says because of back pain, he generally sleeps in the chair. ALLERGIES: CHRISTI INHIBITORS, SIMVASTATIN. PAST MEDICAL HISTORY: As mentioned above. PAST SURGICAL HISTORY: Left knee arthroplasty, colonoscopy, colonoscopy with biopsy, status post tracheostomy, radical orchiectomy, appendectomy, bilateral cataract surgeries, cholecystectomy, TAVR, suture repair of entropion, total hip arthroplasty. MEDICATIONS: The patient is on allopurinol 100 mg p.o. a.m., atorvastatin 20 mg p.o. at bedtime, vitamin D 50 mcg p.o. daily, finasteride 5 mg p.o. daily, Lasix 40 mg p.o. 4 times a week and 60 mg 3 times a week, glipizide 10 mg p.o. b.i.d., insulin 70/30 to take2 6 units in the a.m. and 36 units in the p.m., levothyroxine 137 mcg p.o. daily, lidocaine patch topical q.i.d. p.r.n., losartan 50 mg p.o. b.i.d., metoprolol succinate 25 mg p.o. b.i.d., Flomax 0.4 mg p.o. at bedtime, Coumadin 7.5 mg on Mondays and 5 mg 6 times a week. FAMILY HISTORY: Significant for sister has cancer, brother has diabetes. SOCIAL HISTORY: , no smoking, no alcohol, no drug use. REVIEW OF SYSTEMS: As per HPI. Rest of review of systems is negative. Admission Exam Per Admitting Provider GENERAL: The patient is morbidly obese, not in acute distress. VITAL SIGNS: Temperature 36.8, pulse 78, respiratory rate 20, blood pressure 146/119, oxygen 93% on room air. HEENT: Pupils equal, round and reactive to light. Oral mucosa moist. NECK: No JVD, no neck masses. CARDIOVASCULAR: S1 and S2 heard. Regular rate and rhythm. No murmur, no gallop. RESPIRATORY SYSTEM: Normal AP diameter. No accessory muscle use. No wheezing, no crackles. ABDOMEN: Soft. Bowel sounds are present, nontender, no distention. CENTRAL NERVOUS SYSTEM: Cranial nerves II-XII grossly intact, nonfocal. EXTREMITIES: Mild edema, no erythema seen. Principal Diagnosis Hematuria and urinary retention Discharge Exam GENERAL: Alert and oriented x3. NAD, on RA. Morbidly obese. HEENT: No pallor, no icterus. Pupils equal, round and reactive to light. Oral mucosa moist. trach collar NECK: No JVD, no neck masses. HEART: S1 and S2 heard. Regular rate and rhythm. No murmur, no gallop. RESPIRATORY SYSTEM: Normal AP diameter. No accessory muscle use. No wheezing, no crackles. ABDOMEN: Soft, bowel sounds present, nontender, no distention. CENTRAL NERVOUS SYSTEM: No facial droop. Speech is clear. Obeys simple commands. Moves extremities. EXTREMITIES: No edema, no erythema seen. BLE chronic skin changes. UC w/ clear yellow urine, no gross hematuria Discharge Data Allergies Allergy/AdvReac Type Severity Reaction Status Date / Time CHRISTI Inhibitors AdvReac Mild Cough Verified 08/30/21 01:25 simvastatin AdvReac Muscle Pain Verified 08/30/21 01:25 Consultations 08/30/21 00:02 ED Decision to Admit Stat 08/30/21 08:00 Consult Urology Routine Hospital Course (1) Acute urinary retention: 85-year-old male with past medical history significant for diabetes, diabetic peripheral neuropathy, chronic kidney disease stage III, hyperlipidemia, diabetic retinopathy, hypothyroidism, congenital atresia and stenosis of aorta, nonrheumatic aortic valve stenosis, hypertension, status post TAVR, persistent atrial fibrillation, morbid obesity, BPH, history of microhematuria, CHRISTI intolerance, history of subacute bacterial endocarditis prophylaxis candidate, tracheostomy status, but the patient is not using it, history of colonic polyps, history of cerebellar stroke, history of kidney s tones presented 08/30 with what appears to be traumatic hematuria after failed straight cath x2 at home. He was managed for the followin. Hematuria and urinary retention: The patient has had a Pham catheter for 4 days and it was taken out on last Saturday [employer]. Then had to straight catheterize twice and had hematuria before coming. Status post Pham catheter in the ER. No gross hematuria, resume Coumadin per urology. Urology evaluated, no intervention. Patient to follow-up with urology as an outpatient, maintain Pham. Patient will need follow-up with Coumadin clinic in 2 to 3 days as an outpatient upon discharge. 2. History of type 2 diabetes: Holding his glipizide and holding his insulin 70/30. Placed on insulin sliding scale. Follow the blood sugars. 3. History of hypothyroidism: Continue Synthroid. 4. History of hypertension: Continue losartan and metoprolol. WNL. 5. History of chronic diastolic congestive heart failure: Continue his home Lasix and metoprolol. 6. Benign prostatic hypertrophy: On Flomax and Proscar. 7. History of atrial fibrillation: Rate controlled with metoprolol. Resume Coumadin. Follow the INR. Status post TAVR. 8. Hyperlipidemia: On statin. 9. Deep venous thrombosis prophylaxis: Sequential compression devices for now. Patient is being discharged home with following instruction at the point of discharge: Follow-up with your primary care physician within a week time. Follow-up with urology in 1 to 2 weeks time. Maintain Pham catheter until urology follow-up as an outpatient. Get your blood work CBC and CMP done in a week time and have the results forwarded to your primary care physician. Follow-up with your Coumadin clinic in 2 to 3 days upon discharge and have PT/INR checked for necessary dose adjustment of your Coumadin. Resume your Coumadin upon discharge. Take your medications as prescribed. Total Time Total Time Spent Total Time Spent (In Minutes): 35 Discharge Plan Discharge Items Patient Disposition: Home - Self-Care Reason For Visit: URINARY SYMPTOMS Discharge Diagnosis: Hematuria and urinary retention Activity: Resume your previous activity Non-emergency contact: Primary Care Provider Call non-emergency contact if: you have any medication questions and your temperature is above 101 Follow-up/Referrals: Tu Crump MD [Primary Care Provider] - (Date & Time 09/06/2021 2:00 PM Provider Tierra Geiger MD [facility] ) Diet: Carb Consistent or DM2 and Heart Healthy Addtl Attending Provider Instructions: Follow-up with your primary care physician within a week time. Follow-up with urology in 1 to 2 weeks time. Maintain Pham catheter until urology follow-up as an outpatient. Get your blood work CBC and CMP done in a week time and have the results forwarded to your primary care physician. Follow-up with your Coumadin clinic in 2 to 3 days upon discharge and have PT/INR checked for necessary dose adjustment of your Coumadin. Resume your Coumadin upon discharge. Take your medications as prescribed. Pending Studies at Discharge: No Stand-Alone Forms: My [employer], Smoking Cessation Medications and DC Order Prescriptions: New Triple Antibiotic 3.5mg-400 unit- 5,000 unit/gram Ointment 1 applic EXT DAILY 7 Days Qty: 9 RF: 0 Continued allopurinol 100 mg tablet 100 mg PO QAM RF: 0 atorvastatin 20 mg tablet 20 mg PO HS RF: 0 tamsulosin 0.4 mg capsule 0.4 mg PO HS RF: 0 Novolog Mix 70-30FlexPen U-100 100 unit/mL (70-30) insulin pen 26 units SQ QAM RF: 0 Novolog Mix 70-30FlexPen U-100 100 unit/mL (70-30) insulin pen 36 units SQ QPM RF: 0 glipizide 10 mg tablet extended release 24hr 10 mg PO BID RF: 0 lidocaine HCl 2 % jelly 1 applic topical QID PRN (Reason: pain) Qty: 60 RF: 0 losartan 50 mg tablet 50 mg PO BID RF: 0 furosemide 40 mg tablet 40 mg PO 4XWK RF: 0 furosemide 40 mg tablet 60 mg PO MOWEFR RF: 0 levothyroxine 137 mcg tablet 137 mcg PO DAILY RF: 0 warfarin 2.5 mg tablet 7.5 mg PO .QMON RF: 0 warfarin 2.5 mg tablet 5 mg PO .6DAYS WEEK RF: 0 metoprolol succinate 25 mg tablet extended release 24 hr 25 mg PO BID RF: 0 finasteride 5 mg tablet 5 mg PO DAILY RF: 0 cholecalciferol (vitamin D3) [Vitamin D3] 50 mcg (2,000 unit) Tablet 50 mcg PO DAILY RF: 0 Discharge Orders: Discharge Order (Routine); Ordered 09/01/21 Ordered By: Pepper Cohn/Other Patient Handouts: Managing Type 2 Diabetes Admission Data Admit Date/Time: 08/30/21 02:12 Attending Provider: Pepper Helton Admit Provider: Keith Workman Primary Care Provider: Tu Crump Other Providers: Keith Workman ; Nba Trujillo ; Michael Cade ; Kota Urena ; Meghana Levy ; Bharathi Bloom ; Socorro Yang Melissa A. ; Linda Higgins ; Ar De Dios ; Modesto Hooper ; Neyda Holguin ; Jayda Higgins ; Poncho Diaz
== END 2021-09-01 17:25 | disposition home or self-care (01) ==
LOC: 3N 21:13 → ED 21:13 → 3N 08-30 02:37

== ENCOUNTER 2022-10-10 16:47 | Inpatient (IN) ==
--- NOTE | 2022-10-10 17:13 | Emergency Department Note ---
History of Present Illness General Chief complaint: TIA Symptoms Stated complaint: SLURRED SPEECH,COLD,HASN'T BEEN FEELING WELL Time Seen by Provider: 10/10/22 17:01 History of Present Illness Provider complaint: Slurred speech Onset (ago): hour(s) (2 hours and 45 minutes) 86-year-old male on Coumadin presents emergency department for slurred speech. Patient reports that around 215 he started noticing that he was unable to speak right that his words were jumbled. Denies any falls or traumas. Denies any fevers. He does report cough and congestion. Patient is on Coumadin but does not remember his last INR level. Patient does report that his speech has i mproved over the last hour. Home Medications Medication Instructions Recorded Confirmed Type allopurinol 100 mg tablet 100 mg PO QAM 07/14/18 08/30/21 History atorvastatin 20 mg tablet 20 mg PO HS 07/14/18 08/30/21 History glipizide 10 mg tablet, extended 10 mg PO BID 07/14/18 08/30/21 History release 24 hr insulin aspar prot-insulin aspart 26 units subcut QAM 07/14/18 08/30/21 History 100 unit/mL (70-30) subcutaneous pen (Novolog Mix 70-30FlexPen U-100) insulin aspar prot-insulin aspart 36 units subcut QPM 07/14/18 08/30/21 History 100 unit/mL (70-30) subcutaneous pen (Novolog Mix 70-30FlexPen U-100) tamsulosin 0.4 mg capsule 0.4 mg PO HS 07/14/18 08/30/21 History lidocaine HCl 2 % mucosal jelly 1 applic topical QID PRN pain #60 08/25/21 08/30/21 Rx mL cholecalciferol (vitamin D3) 50 50 mcg PO DAILY 08/30/21 08/30/21 History mcg (2,000 unit) tablet (Vitamin D3) finasteride 5 mg tablet 5 mg PO DAILY 08/30/21 08/30/21 History furosemide 40 mg tablet 40 mg PO 4XWK 08/30/21 08/30/21 History furosemide 40 mg tablet 60 mg PO MOWEFR 08/30/21 08/30/21 History levothyroxine 137 mcg tablet 137 mcg PO DAILY 08/30/21 08/30/21 History losartan 50 mg tablet 50 mg PO BID 08/30/21 08/30/21 History metoprolol succinate 25 mg 25 mg PO BID 08/30/21 08/30/21 History tablet,extended release 24 hr warfarin 2.5 mg tablet 5 mg PO .6DAYS WEEK 08/30/21 08/30/21 History warfarin 2.5 mg tablet 7.5 mg PO .QMON 08/30/21 08/30/21 History Allergies Allergy/AdvReac Type Severity Reaction Status Date / Time CHRISTI Inhibitors AdvReac Intermediate Cough Verified 10/10/22 18:18 simvastatin AdvReac Intermediate Muscle Pain Verified 10/10/22 18:18 Past Med/Surg History Medical History (Updated 10/10/22 @ 18:11 by Davis Campuzano MD) Chronic kidney disease, stage III (moderate) GERD (gastroesophageal reflux disease) Gout H/O nonmelanoma skin cancer Hyperlipidemia Hypertension Hypothyroidism (acquired) Kidney stones 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 Type 2 diabetes mellitus without complications Surgical History Hx of colonoscopy Hx of tonsillectomy S/P aortic valve replacement DUE TO STENOSIS S/P appendectomy S/P cholecystectomy S/P hip replacement LEFT S/P knee replacement LEFT 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 --- SLEEP APNEA AND NEEDED TRACH #4 SIZE AND NOT SURE OF TUBE INFORMATION PATIENT WILL BRING IN SPARE FOR HIS COLONSCOPY -- CLEANED EVERY DAY CHANGE EVERY MONTH SLEEP UPRIGHT IN CHAIR AND UNPLUG IT AT NIGHT Social History Smoking Status: Unknown if ever smoked Second Hand Exposure: No; Do You Dip or Chew Tobacco: No; Hx Alcohol Use: No Hx Substance Use: No Preferred Language: [place]ian Communication Ability: Effective Visual Impairment: Limited Hearing Ability: Normal Blanket Binder Required: No Beliefs That Will Affect Care: None marital status: Current Living Situation: Spouse current occupational status: retired Feels Safe at Home: Yes Assistive Devices: Cane Physical Exam Vital Signs Vital Signs - 24 hr 10/10/22 16:48 10/10/22 17:29 10/10/22 17:36 Temperature 36.9 C Temperature Source Temporal Artery Scan Pulse Rate 81 79 Pulse Rate [Apical] 74 Pulse Rhythm [Apical] Regular Pulse Strength [Apical] Normal Respiratory Rate 16 20 Respiratory Effort / Characteristics Non-Labored Spontaneous Respiratory Depth Normal Respiratory Pattern Regular Blood Pressure 123/77 Blood Pressure Mean 92 Pulse Oximetry 94 94 Oxygen Delivery Method Room Air Room Air Sepsis Recent Fever Within 48 Hours No Sepsis New/Unexplained Change in Mental Status N/A Sepsis Action Taken by Nursing No Action Required Physical Exam HENT: Exam performed. -Head: Normocephalic and atraumatic. -Right Ear: External ear normal. No mastoid erythema -Left Ear: External ear normal. No mastoid erythema -Mouth/Throat: The oropharynx is clear and moist. No trismus in the jaw. No dental abscesses or uvula swelling. No oropharyngeal exudate or tonsillar abscesses. EYES: Conjunctivae and EOM are normal. Pupils are equal, round, and reactive to light. Right eye exhibits no discharge. Left eye exhibits no discharge. No scleral icterus. Funduscopic exam showed no AV nicking or papilledema bilaterally. NECK: Normal range of motion. Neck supple. No JVD present. Tracheostomy present with foul smelling sputum. CV: Normal rate, regular rhythm, normal heart sounds and intact distal pulses. There is no peripheral edema. Palpable radial pulses bue. PULM/CHEST: Effort normal and breath sounds normal. No respiratory distress. No stridor. She has no wheezes. She has no rales. MUSC/SKEL: Normal range of motion. There is no peripheral edema, tenderness or deformity. NEURO: She is alert and oriented to person, place, and time. She has normal strength. No cranial nerve deficit or sensory deficit. Coordination and gait normal. GCS eye subscore is 4. GCS verbal subscore is 5. GCS motor subscore is 6. Cerebellar tests wnl. No clonus. NIHSS: 1 (10:1) SKIN: Skin is warm and dry. She is not diaphoretic. PSYCH: She has a normal mood and affect. Behavior is normal. Judgment and thought content normal. Course Course 1700: The patient was evaluated in room B2. A complete history and physical exam was performed Cardiac monitoring: An order was placed for continuous cardiac monitoring. The monitor shows a rate of 80 with sinus rhythm interpreted by me No code stroke alert called as patient's symptoms have improved and he has a very low NIHSS of 1 also the patient is on Coumadin. Patient was taken to CT right after my initial evaluation. 1722: CT of the head viewed by me shows no ICH. CT angios were not conducted as the patient has a creatinine of 2. 1800: Vital signs stable. On reassessment the patient's dysarthria has resolved. NIHSS 0 currently. Patient's INR is 2.4. Creatinine is elevated. CT of the head within normal limits. Chest x-ray shows possible aspiration. Given the patient's cough and foul-smelling tracheostomy patient be treated for possible Pseudomonas with Zosyn. Patient be admitted to the [facility] team for TIA. Medical Decision Making Laboratory Data Attestation: I reviewed the patient's lab results. 10/10/22 17:00 10/10/22 17:00 Lab Results 10/10/22 10/10/22 10/10/22 Range/Units 17:00 17:00 17:00 WBC 7.19 (4.8-10.8) K/ul RBC 4.25 L (4.70-6.10) M/uL Hgb 14.0 (14.0-18.0) g/dl POC Hgb (14.0-18.0) g/dl Hct 41.0 L (42.0-52.0) % POC Hct (42-52) % MCV 96.5 (80.0-100.0) fL MCH 32.9 (25.0-34.0) pg MCHC 34.1 (32.0-36.0) g/dL RDW Std Deviation 46.5 H (36.4-46.3) fL RDW Coeff of Jenae 13.1 (11.5-14.5) % Plt Count 146 (130-400) K/uL MPV 10.9 (9.4-12.4) fL PT 25.2 H (9.0-12.0) Seconds INR 2.4 H (0.9-1.1) APTT 37.4 H (21.0-31.0) Seconds PTT Ratio 1.3 POC Sodium (135-144) mmol/L Sodium 140 (136-145) mmol/L POC Potassium (3.3-5.0) mmol/L Potassium 4.1 (3.5-5.1) mmol/L POC Chloride (101-112) mmol/L Chloride 107 (98-107) mmol/L Carbon Dioxide 27 (21-32) mmol/L POC Total CO2 (24-31) mmol/L Anion Gap 6 (3-11) POC Anion Gap (16-25) mmol/L POC BUN (7-18) mg/dl BUN 44 H (6-23) mg/dl Creatinine 1.86 H (0.6-1.4) mg/dl POC Creatinine (0.6-1.3) mg/dl Est Cr Clr Drug Dosing Not Reportable Est GFR ( Amer) 37.1 ml/min Est GFR (Non-Af Amer) 32.0 ml/min BUN/Creatinine Ratio 23.7 H (10-20) Glucose 125 H (70-99(Fasting)) mg/dl POC Glucose (other) (70-99) mg/dl Calcium 8.9 (8.6-10.3) mg/dl POC Ioniz Calcium Xochilt (1.12-1.32) mmol/l Magnesium 1.6 L (1.7-2.4) mg/dl Total Bilirubin 0.7 (0.2-1.0) mg/dl AST 18 (13-39) U/L ALT 9 (7-52) U/L Alkaline Phosphatase 84 (34-104) U/L Troponin I High Sens 10.0 (0-20) pg/ml Total Protein 7.2 (6.0-8.3) gm/dl Albumin 3.2 L (3.4-5.0) gm/dl Globulin 4.0 (2.5-4.0) gm/dl Albumin/Globulin Ratio 0.8 L (0.9-2) 10/10/22 Range/Units 17:10 WBC (4.8-10.8) K/ul RBC (4.70-6.10) M/uL Hgb (14.0-18.0) g/dl POC Hgb 15.0 (14.0-18.0) g/dl Hct (42.0-52.0) % POC Hct 44 (42-52) % MCV (80.0-100.0) fL MCH (25.0-34.0) pg MCHC (32.0-36.0) g/dL RDW Std Deviation (36.4-46.3) fL RDW Coeff of Jenae (11.5-14.5) % Plt Count (130-400) K/uL MPV (9.4-12.4) fL PT (9.0-12.0) Seconds INR (0.9-1.1) APTT (21.0-31.0) Seconds PTT Ratio POC Sodium 144 (135-144) mmol/L Sodium (136-145) mmol/L POC Potassium 4.1 (3.3-5.0) mmol/L Potassium (3.5-5.1) mmol/L POC Chloride 105 (101-112) mmol/L Chloride (98-107) mmol/L Carbon Dioxide (21-32) mmol/L POC Total CO2 25 (24-31) mmol/L Anion Gap (3-11) POC Anion Gap 19.0 (16-25) mmol/L POC BUN 42 H (7-18) mg/dl BUN (6-23) mg/dl Creatinine (0.6-1.4) mg/dl POC Creatinine 2.0 H (0.6-1.3) mg/dl Est Cr Clr Drug Dosing Est GFR ( Amer) ml/min Est GFR (Non-Af Amer) ml/min BUN/Creatinine Ratio (10-20) Glucose (70-99(Fasting)) mg/dl POC Glucose (other) 125 H (70-99) mg/dl Calcium (8.6-10.3) mg/dl POC Ioniz Calcium Xochilt 1.18 (1.12-1.32) mmol/l Magnesium (1.7-2.4) mg/dl Total Bilirubin (0.2-1.0) mg/dl AST (13-39) U/L ALT (7-52) U/L Alkaline Phosphatase (34-104) U/L Troponin I High Sens (0-20) pg/ml Total Protein (6.0-8.3) gm/dl Albumin (3.4-5.0) gm/dl Globulin (2.5-4.0) gm/dl Albumin/Globulin Ratio (0.9-2) Imaging Data Attestation: I personally reviewed and interpreted this imaging study as follows: My Impression: CT of the head: No ICH Radiologist's Impression: Head CT 10/10/22 16:51 CT OF THE HEAD WITHOUT CONTRAST CLINICAL HISTORY: Neuro deficit, acute, stroke suspected COMPARISON STUDY: Head CT February 16, 2022. CT DOSE: 625.80 mGy.cm TECHNIQUE: Helical axial images of the head were obtained without IV contrast. Automated exposure control was utilized for the study. A dose lowering technique was utilized adhering to the principles of ALARA. FINDINGS: No acute intracranial hemorrhage, midline shift or mass effect is present. The ventricular system is unremarkable. The basal cisterns are patent. No extra-axial collections are present. There are no findings to suggest acute dural sinus thrombosis or acute territorial infarct. A hypodensity within the left cerebellar hemisphere is unchanged since prior head CT. IMPRESSION: No acute intracranial findings. ACT 112: Negative or not required by law. Electronically signed by: Gio Bustamante M.D. 10/10/2022 5:28 PM Chest X-Ray 10/10/22 17:02 XR chest 1V portable CLINICAL HISTORY: neuro deficit, acute stroke suspected COMPARISON STUDY: No previous studies for comparison. FINDINGS: Tracheostomy tube is in place. There is no pneumothorax or pleural effusion. There is moderate cardiomegaly. Prosthetic aortic valve is noted. There is no radiographic evidence for pulmonary edema. Bibasilar densities favor atelectasis. No definite consolidation to suggest pneumonia. IMPRESSION: 1. Moderate cardiomegaly without evidence for pulmonary edema. 2. Bibasilar densities which favor atelectasis. Pneumonia/aspiration pneumonitis is within the differential but considered less likely. ACT 112: Negative or not required by law. Electronically signed by: Gio Bustamante M.D. 10/10/2022 5:50 PM ECG Data Attestation: I personally reviewed and interpreted this ECG as follows: Rate (beats per minute): 75 Rhythm: + normal sinus ECG Intervals/blocks: + First degree AV block, + Normal QRS and + Normal QT-c ECG ST segments: + Normal ST segments MDM Narrative 1701: The patient was evaluated in room B2. A complete history and physical exam was performed Cardiac monitoring: An order was placed for continuous cardiac monitoring. The monitor shows a rate of 80 with sinus rhythm interpreted by me No code stroke alert called as patient's symptoms have improved and he has a very low NIHSS of 1 also the patient is on Coumadin. Patient was taken to CT right after my initial evaluation. 1722: CT of the head viewed by me shows no ICH. CT angios were not conducted as the patient has a creatinine of 2. 1800: Vital signs stable. On reassessment the patient's dysarthria has resolved. NIHSS 0 currently. Patient's INR is 2.4. Creatinine is elevated. CT of the head within normal limits. Chest x-ray shows possible aspiration. Given the patient's cough and foul-smelling tracheostomy patient be treated for possible Pseudomonas with Zosyn. [facility] Impression & Plan TIA (transient ischemic attack), Aspiration pneumonia Discharge Plan Visit Data Chief Complaint: TIA Symptoms Stated Complaint: SLURRED SPEECH,COLD,HASN'T BEEN FEELING WELL ED Provider: Davis Campuzano Discharge Problem: TIA (transient ischemic attack), Aspiration pneumonia Patient Disposition: Admitted As Inpatient Forms Stand Alone Forms: [facility] Prescriptions Prescriptions: No Action allopurinol 100 mg tablet 100 mg PO QAM atorvastatin 20 mg tablet 20 mg PO HS tamsulosin 0.4 mg capsule 0.4 mg PO HS Novolog Mix 70-30FlexPen U-100 100 unit/mL (70-30) insulin pen 26 units SQ QAM Novolog Mix 70-30FlexPen U-100 100 unit/mL (70-30) insulin pen 36 units SQ QPM glipizide 10 mg tablet extended release 24hr 10 mg PO BID lidocaine HCl 2 % jelly 1 applic topical QID PRN (Reason: pain) Qty: 60 0RF losartan 50 mg tablet 50 mg PO BID furosemide 40 mg tablet 40 mg PO 4XWK Rx Instructions: TAKE SUTUTHSA furosemide 40 mg tablet 60 mg PO MOWEFR levothyroxine 137 mcg tablet 137 mcg PO DAILY warfarin 2.5 mg tablet 7.5 mg PO .QMON warfarin 2.5 mg tablet 5 mg PO .6DAYS WEEK Rx Instructions: TAKE SUN, E, WED, THUR, FRI, SAT metoprolol succinate 25 mg tablet extended release 24 hr 25 mg PO BID finasteride 5 mg tablet 5 mg PO DAILY cholecalciferol (vitamin D3) [Vitamin D3] 50 mcg (2,000 unit) Tablet 50 mcg PO DAILY Referrals Referrals: Tu Crump MD [Primary Care Provider] - Aspiration pneumonia Qualifiers: Aspiration pneumonia type: unspecified Laterality: unspecified laterality Lung location: unspecified part of lung Qualified Code(s): J69.0 - Pneumonitis due to inhalation of food and vomit
[2022-10-10 17:22] LABS: iSTAT Ionized Calcium 1.18 mmol/l (1.12-1.32); iSTAT Potassium 4.1 mmol/L (3.3-5.0)
[2022-10-10 17:24] LABS: Mean Corpuscular Hemoglobin 32.9 pg (25.0-34.0); Mean Corpuscular Hgb Conc 34.1 g/dL (32.0-36.0); Mean Corpuscular Volume 96.5 fL (80.0-100.0); Mean Platelet Volume 10.9 fL (9.4-12.4); Platelet Count 146 K/uL (130-400); RDW Coefficient of Variation 13.1 % (11.5-14.5); RDW Standard Deviation 46.5 fL (36.4-46.3); Red Blood Count 4.25 M/uL (4.70-6.10); White Blood Count 7.19 K/ul (4.8-10.8)
--- NOTE | 2022-10-10 17:30 | CT Scan Report ---
CT OF THE HEAD WITHOUT CONTRAST CLINICAL HISTORY: Neuro deficit, acute, stroke suspected COMPARISON STUDY: Head CT February 16, 2022. CT DOSE: 625.80 mGy.cm TECHNIQUE: Helical axial images of the head were obtained without IV contrast. Automated exposure con trol was utilized for the study. A dose lowering technique was utilized adhering to the principles o f ALARA. FINDINGS: No acute intracranial hemorrhage, midline shift or mass effect is present. The ventricular system is unremarkable. The basal cisterns are patent. No extra-axial collections are present. There are no findings to suggest acute dural sinus thrombosis or acute territorial infarct. A hypodensity w ithin the left cerebellar hemisphere is unchanged since prior head CT. IMPRESSION: No acute intracranial findings. ACT 112: Negative or not required by law. Electronically signed by: Gio Bustamante M.D. 10/10/2022 5:28 PM
[2022-10-10 17:40] LABS: Alanine Aminotransferase 9 U/L (7-52); Albumin Globulin Ratio 0.8 (0.9-2); Albumin Level 3.2 gm/dl (3.4-5.0); Alkaline Phosphatase 84 U/L (34-104); Anion Gap 6 (3-11); Aspartate Aminotransferase 18 U/L (13-39); BUN Creatinine Ratio 23.7 (10-20); Bilirubin,Total 0.7 mg/dl (0.2-1.0); Blood Urea Nitrogen 44 mg/dl (6-23); Calcium 8.9 mg/dl (8.6-10.3); Carbon Dioxide 27 mmol/L (21-32); Chloride 107 mmol/L (98-107); Est GFR (African American) 37.1 ml/min; Glucose 125 mg/dl (70-99(Fasting)); Magnesium 1.6 mg/dl (1.7-2.4); Potassium 4.1 mmol/L (3.5-5.1); Sodium 140 mmol/L (136-145); Total Protein 7.2 gm/dl (6.0-8.3)
--- NOTE | 2022-10-10 17:52 | XRay Report ---
XR chest 1V portable CLINICAL HISTORY: neuro deficit, acute stroke suspected COMPARISON STUDY: No previous studies for comparison. FINDINGS: Tracheostomy tube is in place. There is no pneumothorax or pleural effusion. There is moder ate cardiomegaly. Prosthetic aortic valve is noted. There is no radiographic evidence for pulmonary e jalen. Bibasilar densities favor atelectasis. No definite consolidation to suggest pneumonia. IMPRESSION: 1. Moderate cardiomegaly without evidence for pulmonary edema. 2. Bibasilar densities which favor atelectasis. Pneumonia/aspiration pneumonitis is within the differ ential but considered less likely. ACT 112: Negative or not required by law. Electronically signed by: Gio Bustamante M.D. 10/10/2022 5:50 PM
[2022-10-10 17:53] LABS: INR 2.4 (0.9-1.1); Partial Thromboplastin Ratio 1.3; Partial Thromboplastin Time 37.4 Seconds (21.0-31.0); Prothrombin Time 25.2 Seconds (9.0-12.0)
[2022-10-10] MEDS ORDERED: PIPERACILLIN/TAZOBACTAM 4.5 GM/120 ML BAG IV ONE (18:07)
[2022-10-10] MEDS ORDERED: ASPIRIN 81 MG CHEW PO STA (18:10)
--- NOTE | 2022-10-10 18:28 | History & Physical Report ---
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 Symptoms lasted approximately 3 hours and resolved during ER course Magnesium level 1.6, otherwise no significant electrolyte abnormality. High- sensitivity troponin negative. TSH level pending CT head: No acute intracranial abnormality DDX: TIA, CVA Tele to monitor for arrhythmias Lipid panel, A1c in am MRI brain U/S carotids Echo with bubble study Aspiration precautions PT/OT consult Increase home atorvastatin from 20 mg daily to 40 mg daily Continue Coumadin In ER given 324 mg aspirin. Will consult neurology for further recommendations on starting antiplatelet since patient is already anticoagulated on Coumadin Neurology consult (2) Hypomagnesemia: Plan: Magnesium: 1.6 Replace and monitor (3) Abnormal CXR: Plan: CXR: Moderate cardiomegaly without evidence for pulmonary edema. Bibasilar densities which favor atelectasis. Pneumonia/aspiration pneumonitis is within th e differential but considered less likely. Patient with chronic tracheostomy for prior history of nocturnal hypoxia, allergic reactions of unknown origin Reports chronic nonproductive cough Denies fever, chills, increased cough or sputum production. No leukocytosis, no hypoxia DDx: Pneumonia, atelectasis In ER given Zosyn We will continued Zosyn for now (4) Chronic kidney disease, stage III (moderate): Plan: Cr: 1.86. Baseline~1.8 Monitor renal functions, avoid nephrotoxic agents when possible (5) Insulin dependent type 2 diabetes mellitus: Plan: A1c: 8.0 on 05/16/2022 Hold home NovoLog 70/30, Trulicity NovoLog sliding scale per protocol A1c in a.m. (6) Paroxysmal atrial fibrillation: Plan: Chronically anticoagulated on Coumadin Current sinus rhythm INR: 2.4 Continue Coumadin, metoprolol succinate INR in a.m. 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 Patient will likely require further outpatient TSH monitoring in 6 weeks DVT Prophylaxis Anticoagulated on Coumadin, INR therapeutic Full Code as per discussion with pt Follows with Dr Crump for routine care Pt was seen and care coordinated with Dr Israel. See addendum I spent a total of 80 minutes reviewing notes, outpatient records, labs, medication, coordinating, documenting and providing care for this patient excluding time spent in the performance of separately billed services. History of Present Illness Chief Complaint: slurred speech Primary Care Provider: Tu Crump MD Patient is 86-year-old male with PMH DM II, CKD III, HLD, hypothyroidism, remote history of CVA, paroxysmal atrial fibrillation anticoagulated on Coumadin, aortic stenosis s/p TAVR, history of chronic nocturnal hypoxia, multiple allergic reactions from unknown cause s/p permanent tracheostomy presented to ER with complaint of slurred speech. Patient reports around 2:15 PM noted slurred speech. Patient reports also felt like he was having trouble thinking what he wanted to say. Checked BSG and was 96. Symptoms persisted until ER arrival. Reports shortly after arriving to ER around 5 PM symptoms started to resolve and now have completely resolved. Patient reports generalized headache. Patient reports chronic intermittent dizziness with associated blurry vision that has been ongoing for over a decade. He states today he had some dizziness with blurred vision, and states this feels like his baseline. He reports in past he would have been on meclizine but stopped taking. Patient also reports intermittent loose stools up to 3-4 daily. Family thinks this is started after starting Trulicity. Patient's family states patient has not been taking levothyroxine as there was a mixup with pharmacy. Patient's thinks it has been at least a month since he is taking levothyroxine. Patient reports chronic cough that is nonproductive. Also reports increased coughing with eating. Denies any increased cough. Chronic urinary incontinence. Denies fever/chills, diaphoresis, N/V, syncope, diplopia, vision loss, neck pain, CP, SOB, palpitations, hemoptysis, sore throat, choking, otalgia, rhinorrhea, abdominal pain, paresthesias, weakness, extremity weakness, extremity edema, rashes, dysuria, hematuria. Allergies Allergy/AdvReac Type Severity Reaction Status Date / Time CHRISTI Inhibitors AdvReac Intermediate Cough Verified 10/10/22 18:18 simvastatin AdvReac Intermediate Muscle Pain Verified 10/10/22 18:18 Home Medications Medication Instructions Recorded Confirmed Type allopurinol 100 mg tablet 100 mg PO QAM 07/14/18 10/10/22 History atorvastatin 20 mg tablet 20 mg PO HS 07/14/18 10/10/22 History tamsulosin 0.4 mg capsule 0.4 mg PO BID 07/14/18 10/10/22 History cholecalciferol (vitamin D3) 50 50 mcg PO DAILY 08/30/21 10/10/22 History mcg (2,000 unit) tablet (Vitamin D3) finasteride 5 mg tablet 5 mg PO DAILY 08/30/21 10/10/22 History furosemide 40 mg tablet See Rx Instructions .Route .COMPLEX 08/30/21 10/10/22 History levothyroxine 137 mcg tablet 137 mcg PO DAILY 08/30/21 10/10/22 History losartan 50 mg tablet 50 mg PO BID 08/30/21 10/10/22 History metoprolol succinate 25 mg 25 mg PO BID 08/30/21 10/10/22 History tablet,extended release 24 hr warfarin 2.5 mg tablet See Rx Instructions .Route .COMPLEX 08/30/21 10/10/22 History dulaglutide 1.5 mg/0.5 mL 1.5 mg subcut WK 10/10/22 10/10/22 History subcutaneous pen injector (Trulicity) insulin aspar prt-insulin aspart See Rx Instructions .Route .COMPLEX 10/10/22 10/10/22 History 100 unit/mL (70-30) subcutaneous soln (Novolog Mix 70-30 U-100 Insuln) Past Med/Surg History Medical History (Updated 10/10/22 @ 20:53 by Yadira Schreckengost, PA-C) BPH (benign prostatic hyperplasia) Chronic kidney disease, stage III (moderate) GERD (gastroesophageal reflux disease) Gout H/O nonmelanoma skin cancer Hyperlipidemia Hypertension Hypothyroidism (acquired) Insulin dependent type 2 diabetes mellitus Kidney stones 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 Paroxysmal atrial fibrillation Type 2 diabetes mellitus without complications Surgical History Hx of colonoscopy Hx of tonsillectomy S/P aortic valve replacement DUE TO STENOSIS S/P appendectomy S/P cholecystectomy S/P hip replacement LEFT S/P knee replacement LEFT 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 --- SLEEP APNEA AND NEEDED TRACH #4 SIZE AND NOT SURE OF TUBE INFORMATION PATIENT WILL BRING IN SPARE FOR HIS COLONSCOPY -- CLEANED EVERY DAY CHANGE EVERY MONTH SLEEP UPRIGHT IN CHAIR AND UNPLUG IT AT NIGHT Family History (Updated 10/10/22 @ 19:52 by Yadira Bradley PA-C) Other Cancer Diabetes Social History Smoking Status: Unknown if ever smoked Second Hand Exposure: No; Do You Dip or Chew Tobacco: No; Hx Alcohol Use: No Hx Substance Use: No Preferred Language: Gambian Communication Ability: Effective Visual Impairment: Limited Hearing Ability: Normal 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: No Beliefs That Will Affect Care: None marital status: Current Living Situation: Spouse current occupational status: retired Feels Safe at Home: Yes Assistive Devices: Cane Review of Systems Review of Systems: All systems reviewed & are unremarkable except as noted in HPI & below Physical Exam Physical Exam: General: no distress, obese, elderly male Head: normocephalic, atraumatic Eyes: PERRL, EOM's intact, conjunctiva non-injected, anicteric ENT: normal inspection external ears, nose, mucous membranes moist Neck: supple, trachea midline, +tracheostomy Lungs: no respiratory distress, +rales bilateral bases CV: RRR, no murmur, no pretibial edema Abd: protuberant, normal BS, soft, non-tender Ext: no cyanosis, no calf tenderness Neuro: A&O x 3, normal affect, No nystagmus, Facial sensation is intact and symmetric, face is strong and symmetric, Hearing grossly intact, soft palate elevates symmetrically, no dysarthria, shoulder shrug intact, Tongue is midline, normal movement, no fasciculations. strength 5/5 bilateral upper and lower extremities Skin: warm, dry; bilateral lower legs with chronic skin discoloration Results & Data Results & Data Vital Signs (Past 12 Hours) Vital Signs Temp Pulse Pulse Resp BP Pulse Ox O2 Del Method 10/10/22 17:36 79 10/10/22 17:29 74 20 94 Room Air 10/10/22 16:48 36.9 C 81 16 123/77 94 Room Air Laboratory Results Short CBC 10/10/22 Range/Units 17:00 WBC 7.19 (4.8-10.8) K/ul Hgb 14.0 (14.0-18.0) g/dl Hct 41.0 L (42.0-52.0) % Plt Count 146 (130-400) K/uL BMP 10/10/22 17:00 Sodium 140 Potassium 4.1 Chloride 107 Carbon Dioxide 27 BUN 44 H Creatinine 1.86 H Glucose 125 H Calcium 8.9 Liver Function 10/10/22 Range/Units 17:00 Total Bilirubin 0.7 (0.2-1.0) mg/dl AST 18 (13-39) U/L ALT 9 (7-52) U/L Alkaline Phosphatase 84 (34-104) U/L Albumin 3.2 L (3.4-5.0) gm/dl Diagnostic Findings Head CT 10/10/22 16:51 CT OF THE HEAD WITHOUT CONTRAST CLINICAL HISTORY: Neuro deficit, acute, stroke suspected COMPARISON STUDY: Head CT February 16, 2022. CT DOSE: 625.80 mGy.cm TECHNIQUE: Helical axial images of the head were obtained without IV contrast. Automated exposure control was utilized for the study. A dose lowering technique was utilized adhering to the principles of ALARA. FINDINGS: No acute intracranial hemorrhage, midline shift or mass effect is present. The ventricular system is unremarkable. The basal cisterns are patent. No extra-axial collections are present. There are no findings to suggest acute dural sinus thrombosis or acute territorial infarct. A hypodensity within the left cerebellar hemisphere is unchanged since prior head CT. IMPRESSION: No acute intracranial findings. ACT 112: Negative or not required by law. Electronically signed by: Gio Bustamante M.D. 10/10/2022 5:28 PM Chest X-Ray 10/10/22 17:02 XR chest 1V portable CLINICAL HISTORY: neuro deficit, acute stroke suspected COMPARISON STUDY: No previous studies for comparison. FINDINGS: Tracheostomy tube is in place. There is no pneumothorax or pleural effusion. There is moderate cardiomegaly. Prosthetic aortic valve is noted. There is no radiographic evidence for pulmonary edema. Bibasilar densities favor atelectasis. No definite consolidation to suggest pneumonia. IMPRESSION: 1. Moderate cardiomegaly without evidence for pulmonary edema. 2. Bibasilar densities which favor atelectasis. Pneumonia/aspiration pneumonitis is within the differential but considered less likely. ACT 112: Negative or not required by law. Electronically signed by: Gio Bustamante M.D. 10/10/2022 5:50 PM Supervising Physician Co-Signing Physician Notes Attending addendum: The patient was seen and examined in the emergency room in presence of the family members He has had symptoms of TIA in the form of slurred speech without any other significant symptoms while mowing grass Condition resolved completely in the emergency room Has cough for some time, and has had diarrhea as well without any fever and or chills, urinary incontinence due to prostatic hypertrophy On examination Lying in bed comfortably Hemodynamically stable Chest-crackles bibasally Heart-S1-S2, regular Abdomen-distended, soft, bowel sound present, nontender Extremities-1+ edema bilaterally 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 No focal sensory or motor deficit appreciated Admission labs, EKG and imaging studies reviewed Likely has TIA-symptoms resolved completely in the emergency room CT scan of the head is negative for any acute events We will get other TIA work-up and neuro consult History of A-fib on Coumadin and INR is therapeutic Agree with assessment and plan as outlined above by XIANG Perdue Dr
[2022-10-10 18:30] LABS: Influenza A virus by PCR Negative (Neg); Influenza B virus by PCR Negative (Neg); RSV by PCR Negative (Neg); SARS CoV2 RNA(COVID-19) Ceph NEGATIVE (Negative)
[2022-10-10] MEDS ORDERED: MECLIZINE HCL 25 MG TAB PO STA (18:55)
[2022-10-10] MEDS ORDERED: ONDANSETRON INJ 2 MG/ML 2 ML VIAL IV PRN (21:11)
[2022-10-10] MEDS ORDERED: GLUCAGON FOR INJ 1 MG VIAL SQ PRN (21:11)
[2022-10-10] MEDS ORDERED: POLYETHYLENE (MIRALAX) 17 GM PACK PO PRN (21:11)
[2022-10-10] MEDS ORDERED: DEXTROSE 50% 50 ML SYRINGE IV PRN (21:11)
[2022-10-10] MEDS ORDERED: PHARMACIST DISCHARGE MED REC CONSULT PRN (21:11)
[2022-10-10] MEDS ORDERED: CARBOHYDRATES FOR HYPOGLYCEMIA PO PRN (21:11)
[2022-10-10] MEDS ORDERED: MAGNESIUM SULFATE / D5W 1 GM/100 ML BAG IV ONE (21:11)
[2022-10-10] MEDS ORDERED: GLUCOSE 10 TAB/TUBE PO PRN (21:11)
[2022-10-10] MEDS ORDERED: WARFARIN SOD 2.5 MG TAB PO SCH (21:11)
[2022-10-10] MEDS ORDERED: ACETAMINOPHEN 325 MG TAB PO PRN (21:11)
[2022-10-10] MEDS ORDERED: GLUCOSE 40% GEL 15 GM TUBE PO PRN (21:11)
[2022-10-10] MEDS: TAMSULOSIN HCL 0.4 MG CAP PO SCH (22:03)
[2022-10-10] MEDS: METOPROLOL SUCC 25MG EXT REL TAB PO SCH (22:04)
[2022-10-10] MEDS: LOSARTAN POTASSIUM 50 MG TAB PO SCH (22:05)
[2022-10-10] MEDS ORDERED: LORazepam 2 MG/1 ML VIAL IV ONE (22:19)
[2022-10-10] MEDS: INSULIN ASPART PER UNIT CHARGE SC SCH (22:43)
--- NOTE | 2022-10-11 00:08 | Magnetic Resonance Report ---
Exam(s): MRI HEAD Without Contrast EXAM: MR Head Without Intravenous Contrast CLINICAL HISTORY: Reason for exam: stroke like symptoms. TECHNIQUE: Magnetic resonance images of the head/brain without intravenous contrast in multiple planes. COMPARISON: No relevant prior studies available. FINDINGS: Brain: The cerebral and cerebellar sulci are mildly prominent consistent with mild brain atrophy. There are a few punctate areas of abnormal T2 signal in the deep cerebral white matter most consistent with mild small vessel ischemic/degenerative changes. No hemorrhage. Ventricles: Unremarkable. No ventriculomegaly. Bones/joints: Unremarkable. Sinuses: Unremarkable as visualized. No acute sinusitis. Mastoid air cells: Unremarkable as visualized. No mastoid effusion. Orbits: Unremarkable as visualized. IMPRESSION: No acute findings in the head/brain. Electronically signed by: Jordon Kraft MD 10/11/22 00:08 AM
[2022-10-11] MEDS: PIPERACILLIN/TAZOBACTAM 4.5 GM in DEXTROSE 5% 100 ML IV SCH ×4 (00:39→23:47)
[2022-10-11 05:05] LABS: Basophils # (auto) 0.05 K/uL (0-0.2); Basophils % (auto) 0.7 %; Eosinophils # (auto) 0.37 K/uL (0-0.50); Eosinophils % (auto) 5.4 %; Hematocrit (blood only) 37.6 % (42.0-52.0); Hemoglobin 12.6 g/dl (14.0-18.0); Immature Granulocytes # (auto) 0.02 K/uL (0.01-0.20); Immature Granulocytes % (auto) 0.3 %; Lymphocytes # (auto) 1.27 K/uL (1.2-3.4); Lymphocytes % (auto) 18.6 %; Mean Corpuscular Hemoglobin 32.4 pg (25.0-34.0); Mean Corpuscular Hgb Conc 33.5 g/dL (32.0-36.0); Mean Corpuscular Volume 96.7 fL (80.0-100.0); Mean Platelet Volume 11.3 fL (9.4-12.4); Monocytes # (auto) 0.66 K/uL (0.11-0.59); Monocytes % (auto) 9.6 %; Neutrophils # (auto) 4.47 K/uL (1.40-6.50); Neutrophils % (auto) 65.4 %; Platelet Count 121 K/uL (130-400); RDW Standard Deviation 46.3 fL (36.4-46.3); Red Blood Count 3.89 M/uL (4.70-6.10); White Blood Count 6.84 K/ul (4.8-10.8)
[2022-10-11 05:20] LABS: BUN Creatinine Ratio 23.3 (10-20); Calcium 8.4 mg/dl (8.6-10.3); Chol HDL Ratio 3.3 (0-5); Creatinine Clr Calc Pharmacy 39.3 ml/min; Est GFR (African American) 35.5 ml/min; Est GFR (Non-African American) 30.6 ml/min; Magnesium 1.8 mg/dl (1.7-2.4); Potassium 3.8 mmol/L (3.5-5.1)
[2022-10-11 05:32] LABS: INR 2.5 (0.9-1.1); Prothrombin Time 25.9 Seconds (9.0-12.0)
--- NOTE | 2022-10-11 07:54 | Electrocardiogram Report ---
Test Reason : Blood Pressure : / mmHG Vent. Rate : 075 BPM Atrial Rate : 075 BPM P-R Int : 276 ms QRS Dur : 084 ms QT Int : 396 ms P-R-T Axes : 082 015 024 degrees QTc Int : 442 ms Sinus rhythm with 1st degree A-V block Change in atrial pacemaker after first beat (different rate and P morphology) Abnormal ECG When compared with ECG of 23-AUG-2000 16:29, [place] interval has increased Atrial pacemaker change Confirmed by Travis Vazquez ([id number]) on 10/11/2022 7:54:21 AM Referred By: REFERRED SELF Confirmed By:Travis Vazquez
[2022-10-11 07:57] LABS: Estimated Average Glucose 157 mg/dl; Hemoglobin A1C 7.1 % (4.5-5.6)
[2022-10-11] MEDS: allopurinoL 100 MG TAB PO SCH (08:09)
[2022-10-11] MEDS: FINASTERIDE 5 MG TAB PO SCH (08:09)
[2022-10-11] MEDS: ATORVASTATIN 40 MG TAB PO SCH (08:09)
[2022-10-11] MEDS: CHOLECALCIFEROL 1,000 UNITS 25 MCG TAB PO SCH (08:09)
[2022-10-11] MEDS: LOSARTAN POTASSIUM 50 MG TAB PO SCH ×2 (08:10→20:14)
[2022-10-11] MEDS: TAMSULOSIN HCL 0.4 MG CAP PO SCH ×2 (08:10→20:16)
[2022-10-11] MEDS: METOPROLOL SUCC 25MG EXT REL TAB PO SCH ×2 (08:10→20:15)
[2022-10-11] MEDS: LEVOTHYROXINE SODIUM 137 MCG TABLET PO SCH (08:10)
[2022-10-11] MEDS: INSULIN ASPART PER UNIT CHARGE SC SCH ×4 (08:29→20:11)
[2022-10-11] MEDS ORDERED: FUROSEMIDE 40 MG TAB PO SCH (09:00)
--- NOTE | 2022-10-11 09:15 | Neurology Consultation ---
Date of Consultation October 11, 2022 Assessment & Plan (1) TIA (transient ischemic attack): Transient speech changes in an 86 yo M anticoagulated secondary to afib with chronic trach. 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 Recommend a carotid ultrasound to ensure no symptomatic carotid stenosis is present. Otherwise no stroke indication to add an antiplatelet to warfarin. -- Continue warfarin, no indication to add an antiplatelet -- Check vessel imaging, suggest carotid ultrasound -- No indication for echo from our perspective -- Would discontinue meclizine, is likely contributing to his fatigue and speech changes -- Please contact us with any further questions, we will sign off. Telehealth Consultation Telehealth Information Telehealth Information: I performed this visit using a real-time telehealth connection between my location and the patients location ([facility]). After connecting through interactive tele-video, patient was identified by name and date of and/or wristband check.Patient (or authorized healthcare patient services representative) was informed that this was a telemedicine visit and it was being conducted confidentially over secure lines. My office door was closed and no one else was present in the room with me.Patient (or authorized healthcare patient services representative) provided consent to proceed with the visit, expressed an understanding of privacy and security of the telemedicine visit, and gave permission to have a hospital patient services representative in the room in order to assist with the visit and to conduct portions of the visit, as needed. I informed the patient (or authorized healthcare patient services representative) that I reviewed their record and presented the opportunity for them to ask any questions regarding the visit today. The patient agreed to participate. History of Present Illness Reason for Consultation: Slurred Speech Requesting Physician: Dr. Stephen Attending Physician: Edwin Stephen MD History of Present Illness Cecil Gongora is an 86 yo M presenting with transient slurred speech and difficulty finding words for 3 hours yesterday. 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 He denies any associated numbness, weakness or vision changes with the episode but did have a headache. Currently he feels that his speech is still slightly off but otherwise does not feel well. He believes he got sick over the weekend and developed a cough. Allergies Allergy/AdvReac Type Severity Reaction Status Date / Time CHRISTI Inhibitors AdvReac Intermediate Cough Verified 10/10/22 18:18 simvastatin AdvReac Intermediate Muscle Pain Verified 10/10/22 18:18 Home Medications Medication Instructions Recorded Confirmed Type allopurinol 100 mg tablet 100 mg PO QAM 07/14/18 10/10/22 History atorvastatin 20 mg tablet 20 mg PO HS 07/14/18 10/10/22 History tamsulosin 0.4 mg capsule 0.4 mg PO BID 07/14/18 10/10/22 History cholecalciferol (vitamin D3) 50 50 mcg PO DAILY 08/30/21 10/10/22 History mcg (2,000 unit) tablet (Vitamin D3) finasteride 5 mg tablet 5 mg PO DAILY 08/30/21 10/10/22 History furosemide 40 mg tablet See Rx Instructions .Route .COMPLEX 08/30/21 10/10/22 History levothyroxine 137 mcg tablet 137 mcg PO DAILY 08/30/21 10/10/22 History losartan 50 mg tablet 50 mg PO BID 08/30/21 10/10/22 History metoprolol succinate 25 mg 25 mg PO BID 08/30/21 10/10/22 History tablet,extended release 24 hr warfarin 2.5 mg tablet See Rx Instructions .Route .COMPLEX 08/30/21 10/10/22 History dulaglutide 1.5 mg/0.5 mL 1.5 mg subcut WK 10/10/22 10/10/22 History subcutaneous pen injector (Trulicity) insulin aspar prt-insulin aspart See Rx Instructions .Route .COMPLEX 10/10/22 10/10/22 History 100 unit/mL (70-30) subcutaneous soln (Novolog Mix 70-30 U-100 Insuln) Patient History Medical History (Updated 10/10/22 @ 20:53 by Yadira Bradley PA-C) BPH (benign prostatic hyperplasia) Chronic kidney disease, stage III (moderate) GERD (gastroesophageal reflux disease) Gout H/O nonmelanoma skin cancer Hyperlipidemia Hypertension Hypothyroidism (acquired) Insulin dependent type 2 diabetes mellitus Kidney stones 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 Paroxysmal atrial fibrillation Type 2 diabetes mellitus without complications Surgical History Hx of colonoscopy Hx of tonsillectomy S/P aortic valve replacement DUE TO STENOSIS S/P appendectomy S/P cholecystectomy S/P hip replacement LEFT S/P knee replacement LEFT 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 --- SLEEP APNEA AND NEEDED TRACH #4 SIZE AND NOT SURE OF TUBE INFORMATION PATIENT WILL BRING IN SPARE FOR HIS COLONSCOPY -- CLEANED EVERY DAY CHANGE EVERY MONTH SLEEP UPRIGHT IN CHAIR AND UNPLUG IT AT NIGHT Family History (Updated 10/10/22 @ 19:52 by Yadira Bradley PA-C) Other Cancer Diabetes Social History Smoking Status: Unknown if ever smoked Second Hand Exposure: No; Do You Dip or Chew Tobacco: No; Hx Alcohol Use: No Hx Substance Use: No Preferred Language: Polish Communication Ability: Effective Visual Impairment: Limited Hearing Ability: Normal 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 Oriented to person, place, and time. Fluent. Comprehension intact. Affect appropriate. Cranial Nerves: II: Reads NIHSS cards, pupils 3/3 to 2/2 III/IV/: Versions intact without nystagmus, no gaze preference. V: Facial sensation symmetric to light touch VII: Facial expression symmetric VIII: Hearing intact to voice IX/X: Palate elevates symmetrically XI: Shoulder shrug symmetric XII: Tongue midline Motor: Strength was symmetric and antigravity throughout. Pronator drift was absent. There were no abnormal movements. Coordination: Movements were non-dysmetric Reflexes: Unable to assess over telemedicine Results & Data Vital Signs (Past 12 Hours) Vital Signs Temp Pulse Pulse Resp BP BP Pulse Ox 10/11/22 06:20 64 1 L 93 10/11/22 06:10 107 H 25 H 95 10/11/22 06:00 85 21 95 10/11/22 05:50 55 L 14 93 10/11/22 05:40 61 18 94 10/11/22 05:30 50 L 16 92 10/11/22 05:20 69 17 91 10/11/22 05:10 70 14 92 10/11/22 05:00 60 17 96 10/11/22 04:50 60 11 L 92 10/11/22 04:40 65 4 L 93 10/11/22 04:30 66 18 93 10/11/22 04:20 64 12 93 10/11/22 04:10 61 15 92 10/11/22 04:01 141/73 H 10/11/22 04:01 65 17 95 10/11/22 04:00 66 21 93 10/11/22 03:50 56 L 15 93 10/11/22 03:40 63 17 91 10/11/22 03:30 58 L 11 L 92 10/11/22 03:20 61 13 93 10/11/22 03:10 74 22 87 L 10/11/22 03:00 65 18 94 10/11/22 02:50 60 14 93 10/11/22 02:40 61 16 93 10/11/22 02:30 58 L 17 93 10/11/22 02:20 66 10 L 94 10/11/22 02:10 59 L 20 92 10/11/22 02:05 59 L 13 95 10/11/22 01:50 60 21 93 10/11/22 01:40 68 20 92 10/11/22 01:30 80 23 93 10/11/22 01:20 67 20 95 10/11/22 01:10 79 16 92 10/11/22 01:00 66 4 L 93 10/11/22 00:50 73 15 95 10/11/22 00:40 91 H 21 94 10/11/22 00:30 68 16 97 10/11/22 00:20 67 1 L 95 10/11/22 00:14 75 22 95 10/11/22 00:14 142/71 H 10/11/22 00:10 95 10/11/22 03:18 36.9 C 10/11/22 00:47 10/11/22 00:47 37.0 C 68 16 142/71 H 93 10/10/22 23:20 36.7 C 62 16 146/84 H 96 10/10/22 21:11 67 16 153/80 H 94 10/10/22 21:11 67 16 94 10/10/22 21:23 66 10/10/22 21:00 65 16 147/83 H 95 O2 Del Method 10/11/22 06:20 10/11/22 06:10 10/11/22 06:00 10/11/22 05:50 10/11/22 05:40 10/11/22 05:30 10/11/22 05:20 10/11/22 05:10 10/11/22 05:00 10/11/22 04:50 10/11/22 04:40 10/11/22 04:30 10/11/22 04:20 10/11/22 04:10 10/11/22 04:01 10/11/22 04:01 10/11/22 04:00 10/11/22 03:50 10/11/22 03:40 10/11/22 03:30 10/11/22 03:20 10/11/22 03:10 10/11/22 03:00 10/11/22 02:50 10/11/22 02:40 10/11/22 02:30 10/11/22 02:20 10/11/22 02:10 10/11/22 02:05 10/11/22 01:50 10/11/22 01:40 10/11/22 01:30 10/11/22 01:20 10/11/22 01:10 10/11/22 01:00 10/11/22 00:50 10/11/22 00:40 10/11/22 00:30 10/11/22 00:20 10/11/22 00:14 10/11/22 00:14 10/11/22 00:10 10/11/22 03:18 10/11/22 00:47 Room Air 10/11/22 00:47 Room Air 10/10/22 23:20 Room Air 10/10/22 21:11 Room Air 10/10/22 21:11 Room Air 10/10/22 21:23 10/10/22 21:00 Room Air Laboratory Results Abnormal lab results 10/10/22 10/10/22 10/10/22 Range/Units 17:00 17:00 17:00 RBC 4.25 L (4.70-6.10) M/uL Hgb (14.0-18.0) g/dl Hct 41.0 L (42.0-52.0) % RDW Std Deviation 46.5 H (36.4-46.3) fL Plt Count (130-400) K/uL Nash # (Auto) (0.11-0.59) K/uL PT 25.2 H (9.0-12.0) Seconds INR 2.4 H (0.9-1.1) APTT 37.4 H (21.0-31.0) Seconds POC BUN (7-18) mg/dl BUN 44 H (6-23) mg/dl Creatinine 1.86 H (0.6-1.4) mg/dl POC Creatinine (0.6-1.3) mg/dl BUN/Creatinine Ratio 23.7 H (10-20) Glucose 125 H (70-99(Fasting)) mg/dl POC Glucose (70-99) mg/dl POC Glucose (other) (70-99) mg/dl Hemoglobin A1c (4.5-5.6) % Calcium (8.6-10.3) mg/dl Magnesium 1.6 L (1.7-2.4) mg/dl Albumin 3.2 L (3.4-5.0) gm/dl Albumin/Globulin Ratio 0.8 L (0.9-2) 10/10/22 10/11/22/ Range/Units 17:10 04:32 04:32 RBC 3.89 L (4.70-6.10) M/uL Hgb 12.6 L (14.0-18.0) g/dl Hct 37.6 L (42.0-52.0) % RDW Std Deviation (36.4-46.3) fL Plt Count 121 L (130-400) K/uL Nash # (Auto) 0.66 H (0.11-0.59) K/uL PT 25.9 H (9.0-12.0) Seconds INR 2.5 H (0.9-1.1) APTT (21.0-31.0) Seconds POC BUN 42 H (7-18) mg/dl BUN (6-23) mg/dl Creatinine (0.6-1.4) mg/dl POC Creatinine 2.0 H (0.6-1.3) mg/dl BUN/Creatinine Ratio (10-20) Glucose (70-99(Fasting)) mg/dl POC Glucose (70-99) mg/dl POC Glucose (other) 125 H (70-99) mg/dl Hemoglobin A1c (4.5-5.6) % Calcium (8.6-10.3) mg/dl Magnesium (1.7-2.4) mg/dl Albumin (3.4-5.0) gm/dl Albumin/Globulin Ratio (0.9-2) 10/11/22 10/11/22 10/11/22 Range/Units 04:32 04:32 07:08 RBC (4.70-6.10) M/uL Hgb (14.0-18.0) g/dl Hct (42.0-52.0) % RDW Std Deviation (36.4-46.3) fL Plt Count (130-400) K/uL Nash # (Auto) (0.11-0.59) K/uL PT (9.0-12.0) Seconds INR (0.9-1.1) APTT (21.0-31.0) Seconds POC BUN (7-18) mg/dl BUN 45 H (6-23) mg/dl Creatinine 1.93 H (0.6-1.4) mg/dl POC Creatinine (0.6-1.3) mg/dl BUN/Creatinine Ratio 23.3 H (10-20) Glucose 148 H (70-99(Fasting)) mg/dl POC Glucose 139 H (70-99) mg/dl POC Glucose (other) (70-99) mg/dl Hemoglobin A1c 7.1 H (4.5-5.6) % Calcium 8.4 L (8.6-10.3) mg/dl Magnesium (1.7-2.4) mg/dl Albumin (3.4-5.0) gm/dl Albumin/Globulin Ratio (0.9-2) Diagnostic Findings MRI Brain unremarkable
--- NOTE | 2022-10-11 09:19 | Ultrasound Report ---
CAROTID ARTERY ULTRASOUND CLINICAL HISTORY: stroke like symptoms COMPARISON STUDY: None. TECHNIQUE: Real-time, grayscale, and color Doppler sonography of the carotid and vertebral arteries w as performed. Images were viewed in the transverse and longitudinal planes. FINDINGS: There is mild atherosclerotic plaque. Velocity measurements are listed below. COMMON CAROTID PEAK SYSTOLIC VELOCITY (CM/S): RIGHT 43 LEFT 56 ICA PEAK SYSTOLIC VELOCITY (CM/S): RIGHT 64 LEFT 40 Systolic ratios between the internal to common carotid arteries are normal. Antegrade flow is seen in the vertebral arteries. The external carotid arteries are patent. IMPRESSION: No evidence for a hemodynamically significant stenosis. ACT 112: Negative or not required by law. Electronically signed by: Gio Bustamante M.D. 10/11/2022 9:18 AM
--- NOTE | 2022-10-11 14:51 | Hospitalist Progress Note ---
Date of Service October 11, 2022 Assessment & Plan (1) Stroke-like symptoms: Plan: Per admitting service notes with addendum Patient is 86-year-old male with PMH DM II, CKD III, HLD, hypothyroidism, remote history of CVA, paroxysmal atrial fibrillation anticoagulated on Coumadin, aortic stenosis s/p TAVR, history of chronic nocturnal hypoxia, multiple allergic reactions from unknown cause s/p permanent tracheostomy presented to ER with complaint of slurred speech today around 14:00. Symptoms lasted approximately 3 hours and resolved during ER course Magnesium level 1.6, otherwise no significant electrolyte abnormality. High- sensitivity troponin negative. CT head: No acute intracranial abnormality 10/11 Brain MRI: Negative for acute CVA Neurology service consulted-symptoms not felt to be from TIA Recommend to continue Coumadin Does not recommend addition of antiplatelets at this time Check orthostatic vital signs Needs close monitoring of blood sugar at home to prevent hypoglycemia May also benefit from Zio patch monitor to rule out arrhythmia causing dizziness/blurring of vision (2) Hypomagnesemia: Plan: Magnesium: 1.8 (3) Abnormal CXR: Plan: Possible aspiration pneumonia CXR: Moderate cardiomegaly without evidence for pulmonary edema. Bibasilar densities which favor atelectasis. Pneumonia/aspiration pneumonitis is within the differential but considered less likely. Patient with chronic tracheostomy for prior history of nocturnal hypoxia, allergic reactions of unknown origin Reports chronic nonproductive cough Denies fever, chills, increased cough or sputum production. No leukocytosis, no hypoxia 10/11 Patient reports episodes of coughing while eating/drinking Speech therapy consulted Continue Zosyn IV for now (4) Chronic kidney disease, stage III (moderate): Plan: Cr: 1.86. Baseline~1.8 Creatinine 1.9 (5) Insulin dependent type 2 diabetes mellitus: Plan: A1c: 8.0 on 05/16/2022 Hold home NovoLog 70/30, Trulicity NovoLog sliding scale per protocol A1c 7.1 (6) Paroxysmal atrial fibrillation: Plan: Chronically anticoagulated on Coumadin Current sinus rhythm INR: 2.5 Continue Coumadin, metoprolol succinate (7) Tracheostomy in place: Plan: history of chronic nocturnal hypoxia, multiple allergic reactions from unknown cause s/p permanent tracheostomy (8) Nonrheumatic aortic valve stenosis: Plan: S/P TAVR (9) Hypertension: Plan: Continue losartan, metoprolol succinate, Lasix (10) BPH (benign prostatic hyperplasia): Plan: Continue tamsulosin, finasteride (11) Hypothyroidism (acquired): Plan: TSH normal Patient has not been taking levothyroxine for at least 4 weeks (reported pharmacy issue and patient misunderstanding and appears to have fallen off med list) DVT Prophylaxis Anticoagulated on Coumadin, INR therapeutic Full Code as per discussion with pt Follows with Dr Crump for routine care plan of care discussed with patient in detail and at length all questions answered He is understanding, agreeable, comfortable with the plan of care Admission and Anticipated Discharge Date Admission Date: October 10, 2022 Subjective Follow-up for dizziness, acute CVA ruled out, etc. Seen resting in bed, sitting up, not in distress In good spirits States he feels better compared to yesterday Speech mostly back to its baseline Denies any other new neurologic symptoms Reports slurred speech started with some dizziness and blurring of vision which happens to him intermittently at home No precipitating factors Review of Systems Review of Systems: all noted and negative except for above Physical Exam Physical Exam: General- oriented x 3, not in distress, speaks in sentences with no effort or accessory muscle use Head- atraumatic Eyes- PERRL, EOMI, anicteric ENT- oropharynx clear Neck- supple, no JVD, no adenopathy, no thyromegaly; carotids +2/2, no bruits appreciated Trach in place: No bleeding Lungs- clear to auscultation bilaterally, no rales/wheezes Heart- normal rate, regular rhythm; no murmur, no gallop, no rub appreciated Abdomen- normal bowel sounds, nondistended, soft, nontender, no masses or hepatosplenomegaly Extremities- no pretibial edema, no calf tenderness; peripheral pulses intact Neuro- alert, oriented x 3; CN 2-12 grossly intact; motor 5/5 bilaterally;sensation 100% on all extremities; no other gross focal neurologic deficits Skin- warm & dry Results & Data Results & Data Vital Signs (Past 12 Hours) Vital Signs Temp Pulse Pulse Resp BP BP Pulse Ox 10/11/22 13:36 10/11/22 11:52 36.5 C 78 16 132/76 96 10/11/22 08:00 10/11/22 08:00 36.3 C L 66 18 151/61 H 98 10/11/22 06:20 64 1 L 93 10/11/22 06:10 107 H 25 H 95 10/11/22 06:00 85 21 95 10/11/22 05:50 55 L 14 93 10/11/22 05:40 61 18 94 10/11/22 05:30 50 L 16 92 10/11/22 05:20 69 17 91 10/11/22 05:10 70 14 92 10/11/22 05:00 60 17 96 10/11/22 04:50 60 11 L 92 10/11/22 04:40 65 4 L 93 10/11/22 04:30 66 18 93 10/11/22 04:20 64 12 93 10/11/22 04:10 61 15 92 10/11/22 04:01 141/73 H 10/11/22 04:01 65 17 95 10/11/22 04:00 66 21 93 10/11/22 03:50 56 L 15 93 10/11/22 03:40 63 17 91 10/11/22 03:30 58 L 11 L 92 10/11/22 03:20 61 13 93 10/11/22 03:10 74 22 87 L 10/11/22 03:00 65 18 94 10/11/22 02:50 60 14 93 10/11/22 03:18 36.9 C Pulse Ox O2 Del Method O2 Flow Rate 10/11/22 13:36 95 0 10/11/22 11:52 Room Air 10/11/22 08:00 Room Air 10/11/22 08:00 Room Air 10/11/22 06:20 10/11/22 06:10 10/11/22 06:00 10/11/22 05:50 10/11/22 05:40 10/11/22 05:30 10/11/22 05:20 10/11/22 05:10 10/11/22 05:00 10/11/22 04:50 10/11/22 04:40 10/11/22 04:30 10/11/22 04:20 10/11/22 04:10 10/11/22 04:01 10/11/22 04:01 10/11/22 04:00 10/11/22 03:50 10/11/22 03:40 10/11/22 03:30 10/11/22 03:20 10/11/22 03:10 10/11/22 03:00 10/11/22 02:50 10/11/22 03:18 all noted and reviewed including below
[2022-10-11] MEDS ORDERED: WARFARIN SOD 5 MG TAB PO SCH ×2 (16:00)
[2022-10-12] MEDS: PIPERACILLIN/TAZOBACTAM 4.5 GM in DEXTROSE 5% 100 ML IV SCH (08:17)
[2022-10-12] MEDS: ATORVASTATIN 40 MG TAB PO SCH (08:22)
[2022-10-12] MEDS: allopurinoL 100 MG TAB PO SCH (08:22)
[2022-10-12] MEDS: CHOLECALCIFEROL 1,000 UNITS 25 MCG TAB PO SCH (08:23)
[2022-10-12] MEDS: FINASTERIDE 5 MG TAB PO SCH (08:23)
[2022-10-12] MEDS: LEVOTHYROXINE SODIUM 137 MCG TABLET PO SCH (08:23)
[2022-10-12] MEDS: LOSARTAN POTASSIUM 50 MG TAB PO SCH (08:24)
[2022-10-12] MEDS: TAMSULOSIN HCL 0.4 MG CAP PO SCH (08:24)
[2022-10-12] MEDS: METOPROLOL SUCC 25MG EXT REL TAB PO SCH (08:24)
[2022-10-12] MEDS: INSULIN ASPART PER UNIT CHARGE SC SCH ×2 (08:24→12:19)
[2022-10-12] MEDS ORDERED: FUROSEMIDE 40 MG TAB PO SCH (09:00)
[2022-10-12 09:38] LABS: INR 2.9 (0.9-1.1); Prothrombin Time 29.3 Seconds (9.0-12.0)
--- NOTE | 2022-10-12 17:02 | Discharge Summary ---
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 Patient reports around 2:15 PM noted slurred speech. Patient reports also felt like he was having trouble thinking what he wanted to say. Checked BSG and was 96. Symptoms persisted until ER arrival. Reports shortly after arriving to ER around 5 PM symptoms started to resolve and now have completely resolved. Patient reports generalized headache. Patient reports chronic intermittent dizziness with associated blurry vision that has been ongoing for over a decade. He states today he had some dizziness with blurred vision, and states this feels like his baseline. He reports in past he would have been on meclizine but stopped taking. Patient also reports intermittent loose stools up to 3-4 daily. Family thinks this is started after starting Trulicity. Patient's family states patient has not been taking levothyroxine as there was a mixup with pharmacy. Patient's thinks it has been at least a month since he is taking levothyroxine. Patient reports chronic cough that is nonproductive. Also reports increased coughing with eating. Denies any increased cough. Chronic urinary incontinence. Denies fever/chills, diaphoresis, N/V, syncope, diplopia, vision loss, neck pain, CP, SOB, palpitat ions, hemoptysis, sore throat, choking, otalgia, rhinorrhea, abdominal pain, paresthesias, weakness, extremity weakness, extremity edema, rashes, dysuria, hematuria. Admission Exam Per Admitting Provider General: no distress, obese, elderly male Head: normocephalic, atraumatic Eyes: PERRL, EOM's intact, conjunctiva non-injected, anicteric ENT: normal inspection external ears, nose, mucous membranes moist Neck: supple, trachea midline, +tracheostomy Lungs: no respiratory distress, +rales bilateral bases CV: RRR, no murmur, no pretibial edema Abd: protuberant, normal BS, soft, non-tender Ext: no cyanosis, no calf tenderness Neuro: A&O x 3, normal affect, No nystagmus, Facial sensation is intact and symmetric, face is strong and symmetric, Hearing grossly intact, soft palate elevates symmetrically, no dysarthria, shoulder shrug intact, Tongue is midline, normal movement, no fasciculations. 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 Symptoms lasted approximately 3 hours and resolved during ER course Magnesium level 1.6, otherwise no significant electrolyte abnormality. High- sensitivity troponin negative. CT head: No acute intracranial abnormality 10/12 Brain MRI: Negative for acute CVA Neurology service consulted-symptoms not felt to be from TIA Recommend to continue Coumadin Does not recommend addition of antiplatelets at this time Negative for orthostatic hypotension Needs close monitoring of blood sugar at home to prevent hypoglycemia May also benefit from Zio patch monitor to rule out arrhythmia causing dizziness/blurring of vision (2) Hypomagnesemia: Magnesium: 1.8 (3) Abnormal CXR: Possible aspiration pneumonia CXR: Moderate cardiomegaly without evidence for pulmonary edema. Bibasilar densities which favor atelectasis. Pneumonia/aspiration pneumonitis is within the differential but considered less likely. Patient with chronic tracheostomy for prior history of nocturnal hypoxia, allergic reactions of unknown origin Reports chronic nonproductive cough Denies fever, chills, increased cough or sputum production. No leukocytosis, no hypoxia 10/12 Patient reports episodes of coughing while eating/drinking Chest x-ray showing bilateral basilar infiltrates Given IV Zosyn, symptoms improving Discharge to home with Augmentin plus doxycycline x1 week Speech therapy consulted-recommend outpatient video swallow study (4) Chronic kidney disease, stage III (moderate): Cr: 1.86. 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 (8) Nonrheumatic aortic valve stenosis: S/P TAVR (9) Hypertension: Continue losartan, metoprolol succinate, Lasix (10) BPH (benign prostatic hyperplasia): Continue tamsulosin, finasteride (11) Hypothyroidism (acquired): TSH normal Patient has not been taking levothyroxine for at least 4 weeks (reported pharmacy issue and patient misunderstanding and appears to have fallen off med list) DVT Prophylaxis Anticoagulated on Coumadin, INR therapeutic Full Code as per discussion with pt Follows with Dr Crump for routine care plan of care discussed with patient in detail and at length all questions answered He is understanding, agreeable, comfortable with the plan of care Discharge Exam General- oriented x 3, not in distress, speaks in sentences with no effort or accessory muscle use Eyes- anicteric Neck- no JVD Lungs- clear breath sounds bilaterally, no rales/wheezes Heart- normal rate, regular rhythm; no murmurs Abdomen- normal bowel sounds, nondistended, soft, nontender Extremities- no pretibial edema, no calf tenderness Neuro- alert, oriented x 3; no gross focal neurologic deficits Skin- warm & dry Updated Medication List Medication Instructions Recorded Confirmed Type allopurinol 100 mg tablet 100 mg PO QAM 07/14/18 10/10/22 History atorvastatin 20 mg tablet 20 mg PO HS 07/14/18 10/10/22 History tamsulosin 0.4 mg capsule 0.4 mg PO BID 07/14/18 10/10/22 History cholecalciferol (vitamin D3) 50 50 mcg PO DAILY 08/30/21 10/10/22 History mcg (2,000 unit) tablet (Vitamin D3) finasteride 5 mg tablet 5 mg PO DAILY 08/30/21 10/10/22 History furosemide 40 mg tablet See Rx Instructions .Route .COMPLEX 08/30/21 10/10/22 History levothyroxine 137 mcg tablet 137 mcg PO DAILY 08/30/21 10/10/22 History losartan 50 mg tablet 50 mg PO BID 08/30/21 10/10/22 History metoprolol succinate 25 mg 25 mg PO BID 08/30/21 10/10/22 History tablet,extended release 24 hr warfarin 2.5 mg tablet See Rx Instructions .Route .COMPLEX 08/30/21 10/10/22 History dulaglutide 1.5 mg/0.5 mL 1.5 mg subcut WK 10/10/22 10/10/22 History subcutaneous pen injector (Trulicity) insulin aspar prt-insulin aspart See Rx Instructions .Route .COMPLEX 10/10/22 10/10/22 History 100 unit/mL (70-30) subcutaneous soln (Novolog Mix 70-30 U-100 Insuln) amoxicillin 500 mg-potassium 1 tab PO BID 7 days #14 tabs 10/12/22 Rx clavulanate 125 mg tablet doxycycline hyclate 100 mg capsule 100 mg PO BID 7 days #14 caps 10/12/22 Rx guaifenesin 600 mg tablet, 600 mg PO BID 7 days #14 tabs 10/12/22 Rx extended release 12 hr (Mucinex) Hospital Stay Data Consultations 10/10/22 17:57 ED Decision to Admit Stat 10/10/22 21:11 Consult Neurology Routine Diagnostic Imagining Performed Laboratory Results WBC 6.84 K/ul (4.8-10.8) 10/11/22 04:32 RBC 3.89 M/uL (4.70-6.10) L 10/11/22 04:32 Hgb 12.6 g/dl (14.0-18.0) L 10/11/22 04:32 POC Hgb 15.0 g/dl (14.0-18.0) 10/10/22 17:10 Hct 37.6 % (42.0-52.0) L 10/11/22 04:32 POC Hct 44 % (42-52) 10/10/22 17:10 MCV 96.7 fL (80.0-100.0) 10/11/22 04:32 MCH 32.4 pg (25.0-34.0) 10/11/22 04:32 MCHC 33.5 g/dL (32.0-36.0) 10/11/22 04:32 RDW Std Deviation 46.3 fL (36.4-46.3) 10/11/22 04:32 RDW Coeff of Jenae 13.0 % (11.5-14.5) 10/11/22 04:32 Plt Count 121 K/uL (130-400) L 10/11/22 04:32 MPV 11.3 fL (9.4-12.4) 10/11/22 04:32 Immature Gran % (Auto) 0.3 % 10/11/22 04:32 Neut % (Auto) 65.4 % 10/11/22 04:32 Lymph % (Auto) 18.6 % 10/11/22 04:32 [place] % (Auto) 9.6 % 10/11/22 04:32 Eos % (Auto) 5.4 % 10/11/22 04:32 Baso % (Auto) 0.7 % 10/11/22 04:32 Neut # (Auto) 4.47 K/uL (1.40-6.50) 10/11/22 04:32 Lymph # (Auto) 1.27 K/uL (1.2-3.4) 10/11/22 04:32 [place] # (Auto) 0.66 K/uL (0.11-0.59) H 10/11/22 04:32 Eos # (Auto) 0.37 K/uL (0-0.50) 10/11/22 04:32 Baso # (Auto) 0.05 K/uL (0-0.2) 10/11/22 04:32 Immature Gran # (Auto) 0.02 K/uL (0.01-0.20) 10/11/22 04:32 PT 29.3 Seconds (9.0-12.0) H 10/12/22 08:30 INR 2.9 (0.9-1.1) H 10/12/22 08:30 APTT 37.4 Seconds (21.0-31.0) H 10/10/22 17:00 PTT Ratio 1.3 10/10/22 17:00 POC Sodium 144 mmol/L (135-144) 10/10/22 17:10 Sodium 140 mmol/L (136-145) 10/11/22 04:32 POC Potassium 4.1 mmol/L (3.3-5.0) 10/10/22 17:10 Potassium 3.8 mmol/L (3.5-5.1) 10/11/22 04:32 POC Chloride 105 mmol/L (101-112) 10/10/22 17:10 Chloride 106 mmol/L (98-107) 10/11/22 04:32 Carbon Dioxide 27 mmol/L (21-32) 10/11/22 04:32 POC Total CO2 25 mmol/L (24-31) 10/10/22 17:10 Anion Gap 7 (3-11) 10/11/22 04:32 POC Anion Gap 19.0 mmol/L (16-25) 10/10/22 17:10 POC BUN 42 mg/dl (7-18) H 10/10/22 17:10 BUN 45 mg/dl (6-23) H 10/11/22 04:32 Creatinine 1.93 mg/dl (0.6-1.4) H 10/11/22 04:32 POC Creatinine 2.0 mg/dl (0.6-1.3) H 10/10/22 17:10 Est Cr Clr Drug Dosing 39.3 ml/min 10/11/22 04:32 Est GFR ( Amer) 35.5 ml/min 10/11/22 04:32 Est GFR (Non-Af Amer) 30.6 ml/min 10/11/22 04:32 BUN/Creatinine Ratio 23.3 (10-20) H 10/11/22 04:32 Glucose 148 mg/dl (70-99(Fasting)) H 10/11/22 04:32 POC Glucose 161 mg/dl (70-99) H 10/12/22 11:46 POC Glucose (other) 125 mg/dl (70-99) H 10/10/22 17:10 Estimat Average Glucose 157 mg/dl 10/11/22 04:32 Hemoglobin A1c 7.1 % (4.5-5.6) H 10/11/22 04:32 Calcium 8.4 mg/dl (8.6-10.3) L 10/11/22 04:32 POC Ioniz Calcium Xochilt 1.18 mmol/l (1.12-1.32) 10/10/22 17:10 Magnesium 1.8 mg/dl (1.7-2.4) 10/11/22 04:32 Total Bilirubin 0.7 mg/dl (0.2-1.0) 10/10/22 17:00 AST 18 U/L (13-39) 10/10/22 17:00 ALT 9 U/L (7-52) 10/10/22 17:00 Alkaline Phosphatase 84 U/L (34-104) 10/10/22 17:00 Troponin I High Sens 10.0 pg/ml (0-20) 10/10/22 17:00 Total Protein 7.2 gm/dl (6.0-8.3) 10/10/22 17:00 Albumin 3.2 gm/dl (3.4-5.0) L 10/10/22 17:00 Globulin 4.0 gm/dl (2.5-4.0) 10/10/22 17:00 Albumin/Globulin Ratio 0.8 (0.9-2) L 10/10/22 17:00 Triglycerides 124 mg/dl (0-150) 10/11/22 04:32 Cholesterol 112 mg/dl (0-200) 10/11/22 04:32 LDL Cholesterol, Calc 53 mg/dl 10/11/22 04:32 VLDL Cholesterol, Calc 25 mg/dl (0-30) 10/11/22 04:32 HDL Cholesterol 34 mg/dl 10/11/22 04:32 Cholesterol/HDL Ratio 3.3 (0-5) 10/11/22 04:32 TSH 1.516 uIu/ml (0.300-4.500) 10/10/22 17:00 Nasal Screen MRSA (PCR) Negative (Negative) 10/11/22 00:13 SARS-CoV-2 (PCR) NEGATIVE (Negative) 10/10/22 Unknown Influenza Type A (PCR) Negative (Neg) 10/10/22 Unknown Influenza Type B (PCR) Negative (Neg) 10/10/22 Unknown RSV (RT-PCR) Negative (Neg) 10/10/22 Unknown Blood Type A Positive 10/10/22 17:31 Antibody Screen NEGATIVE 10/10/22 17:[address] 10/10/22 16:51 CT OF THE HEAD WITHOUT CONTRAST CLINICAL HISTORY: Neuro deficit, acute, stroke suspected COMPARISON STUDY: Head CT February 16, 2022. CT DOSE: 625.80 mGy.cm TECHNIQUE: Helical axial images of the head were obtained without IV contrast. Automated exposure control was utilized for the study. A dose lowering technique was utilized adhering to the principles of ALARA. FINDINGS: No acute intracranial hemorrhage, midline shift or mass effect is present. The ventricular system is unremarkable. The basal cisterns are patent. No extra-axial collections are present. There are no findings to suggest acute dural sinus thrombosis or acute territorial infarct. A hypodensity within the left cerebellar hemisphere is unchanged since prior head CT. IMPRESSION: No acute intracranial findings. ACT 112: Negative or not required by law. Electronically signed by: Gio Bustamante M.D. 10/10/2022 5:28 PM Chest X-Ray 10/10/22 17:02 XR chest 1V portable CLINICAL HISTORY: neuro deficit, acute stroke suspected COMPARISON STUDY: No previous studies for comparison. FINDINGS: Tracheostomy tube is in place. There is no pneumothorax or pleural effusion. There is moderate cardiomegaly. Prosthetic aortic valve is noted. There is no radiographic evidence for pulmonary edema. Bibasilar densities favor atelectasis. No definite consolidation to suggest pneumonia. IMPRESSION: 1. Moderate cardiomegaly without evidence for pulmonary edema. 2. Bibasilar densities which favor atelectasis. Pneumonia/aspiration pneumonitis is within the differential but considered less likely. ACT 112: Negative or not required by law. Electronically signed by: Gio Bustamante M.D. 10/10/2022 5:50 PM Brain MRI 10/10/22 21:11 Exam(s): MRI HEAD Without Contrast EXAM: MR Head Without Intravenous Contrast CLINICAL HISTORY: Reason for exam: stroke like symptoms. TECHNIQUE: Magnetic resonance images of the head/brain without intravenous contrast in multiple planes. COMPARISON: No relevant prior studies available. FINDINGS: Brain: The cerebral and cerebellar sulci are mildly prominent consistent with mild brain atrophy. There are a few punctate areas of abnormal T2 signal in the deep cerebral white matter most consistent with mild small vessel ischemic/degenerative changes. No hemorrhage. Ventricles: Unremarkable. No ventriculomegaly. Bones/joints: Unremarkable. Sinuses: Unremarkable as visualized. No acute sinusitis. Mastoid air cells: Unremarkable as visualized. No mastoid effusion. Orbits: Unremarkable as visualized. IMPRESSION: No acute findings in the head/brain. Electronically signed by: Jordon Kraft MD 10/11/22 00:08 AM Carotid Doppler Study 10/11/22 00:00 CAROTID ARTERY ULTRASOUND CLINICAL HISTORY: stroke like symptoms COMPARISON STUDY: None. TECHNIQUE: Real-time, grayscale, and color Doppler sonography of the carotid and vertebral arteries was performed. Images were viewed in the transverse and longitudinal planes. FINDINGS: There is mild atherosclerotic plaque. Velocity measurements are listed below. COMMON CAROTID PEAK SYSTOLIC VELOCITY (CM/S): RIGHT 43 LEFT 56 ICA PEAK SYSTOLIC VELOCITY (CM/S): RIGHT 64 LEFT 40 Systolic ratios between the internal to common carotid arteries are normal. Antegrade flow is seen in the vertebral arteries. The external carotid arteries are patent. IMPRESSION: No evidence for a hemodynamically significant stenosis. ACT 112: Negative or not required by law. Electronically signed by: Gio Bustamante M.D. 10/11/2022 9:18 AM Pending Results Patient Have Any Pending Studies at Discharge: No Discharge Instructions Given to Patient (Per Discharging Provider) PLEASE REFER TO YOUR NEW MEDICATION LIST AND FOLLOW INSTRUCTIONS CAREFULLY. YOUR NEW MEDICATIONS INCLUDE: AUGMENTIN, DOXYCYCLINE- antibiotics for pneumonitis MUCINEX- for lung congestion TAKE A PROBIOTIC DAILY X 2 WEEKS. RENEW LIFE BRAND RECOMMENDED. AVOID DRY, PASTY FOOD. ALWAYS ALTERNATE SOLID WITH LIQUIDS DURING MEALS. PLEASE CALL [facility] SCHEDULING TO SCHEDULED A VIDEO SWALLOW STUDY. PLEASE CALL YOUR PRIMARY CARE PHYSICIAN OR RETURN TO THE ER IF WITH WORSENING OF SYMPTOMS, INCLUDING WORSENING COUGH, SPUTUM PRODUCTION, FEVER/CHILLS, SHORTNESS OF BREATH, ETC FOLLOW UP WITH PRIMARY CARE PHYSICIAN OUTLINED ABOVE. Total Time Total Time Spent Total Time Spent (In Minutes): >30 minutes
== END 2022-10-12 15:29 | disposition home or self-care (01) | DRG 69 ==
LOC: ED 16:47 → EDINP 18:35 → SUATTDRO 18:35 → EDINP 23:20 → 1E 10-11 00:03 → 2S 10-11 10:53